=== PATIENT | female | born 1945 | race Caucasian/White ===

== ENCOUNTER 2017-10-19 05:07 | Inpatient (IN) | payer OTHER ==
[2017-10-13 11:37] VITALS: BMI 28.3
--- NOTE | 2017-10-19 10:28 | HP ---
Admitting History and Physical - Admission Chief Complaint: Laura Adhikari is a 72 year old Latin female who presents with c/o over one year lower back and Right leg radicular pain which have not responded to conversative measures. History of Present Illness: Laura Adhikari is a 72 year old Latin female who was referred by Dr. Holcomb with a history of back and leg pain which did not respond to conservative measures. She stated greater than one year of significant back and Right leg radicular pain. She described her pain as constant and with walking she can feel her bones rubbing. She described her pain as debilitating and affects her ADLs. She stated "When I walk, I feel like the bones are rubbing..constant in my Right leg...sitting is not too bad, but sometimes I have to lie down completely [ because the pain is too bad]...these last three months, I am in so much pain." History Source: Patient Limitations to Obtaining History: No Limitations - Past Medical History EMS EDUCATOR: No: Alzheimer's, CVA, Dementia, Migraine, Multiple Sclerosis, Peripheral Neuropathy, Parkinson's, Seizure, Syncope, TIA, Vertigo, Other ...: No Musculoskeletal: Yes: Chronic low back pain - Smoking History Smoking history: Never smoked Aproximately how many cigarettes per day: 0 - Alcohol/Substance Use Hx Alcohol Use: Yes (1 BEER OR WINE DAILY) - Social History ADL: Independent History of Recent Travel: No Home Medications - Allergies Allergies/Adverse Reactions: Allergies Allergy/AdvReac Type Severity Reaction Status Date / Time No Known Allergies Allergy Verified 10/13/17 11:44 - Home Medications Home Medications: Ambulatory Orders Atorvastatin Ca [Lipitor] 40 mg PO HS 10/13/17 Levothyroxine [Synthroid -] 75 mcg PO DAILY@0700 10/13/17 Zolpidem Tartrate [Ambien] 10 mg PO HS 10/13/17 Family Disease History - Family Disease History Family Disease History: CA: Father (esophageal)
[2017-10-19] MEDS ORDERED: LIDOCAINE 1%/EPI 1:100000 (20 ML MULTI DOSE VIAL) ONE (13:25)
[2017-10-19] MEDS ORDERED: GENTAMICIN SO4 80 MG/2 ML VIAL ONE (13:25)
[2017-10-19] MEDS ORDERED: BUPIVACAINE HCL/PF 0.5% (5MG/ML) 10 ML VIAL ONE (13:26)
[2017-10-19] MEDS ORDERED: THROMBIN (BOVINE) 5,000 UNIT VIAL TP ONE (13:26)
[2017-10-19] MEDS ORDERED: ROCURONIUM BROMIDE 50 MG/5 ML VIAL ONE ×2 (14:08→16:22)
[2017-10-19] MEDS ORDERED: MIDAZOLAM HCL 2 MG/2 ML SINGLE DOSE VIAL ONE (14:08)
[2017-10-19] MEDS ORDERED: PROPOFOL 20 ML ONE ×2 (14:08→18:15)
[2017-10-19] MEDS ORDERED: LIDOCAINE HCL/PF 2% SDV 5ML VIAL ONE (14:32)
[2017-10-19] MEDS ORDERED: SODIUM CHLORIDE 0.9% P/F 10 ML VIAL IJ ONE ×2 (14:39→15:18)
[2017-10-19] MEDS ORDERED: VANCOMYCIN 1,000 MG VIAL (RESTRICTED TO ID ONLY) ONE (14:39)
[2017-10-19] MEDS ORDERED: ceFAZolin SODIUM 1 GM VIAL ONE (14:39)
[2017-10-19] MEDS ORDERED: ceFAZolin SODIUM 1 GM VIAL IVPB ONE (14:40)
[2017-10-19] MEDS ORDERED: VANCOMYCIN 1,000 MG VIAL (RESTRICTED TO ID ONLY) IVPB ONE (14:41)
[2017-10-19] MEDS ORDERED: PHENYLEPHRINE HCL 10 MG/1 ML SINGLE DOSE VIAL ONE (15:17)
[2017-10-19] MEDS ORDERED: ePHEDrine SULFATE 50 MG/1 ML AMPULE ONE (15:18)
[2017-10-19] MEDS ORDERED: LIDOCAINE 1%/EPI 1:100000 (50 ML MULTI DOSE VIAL) INF ONE (15:29)
[2017-10-19] MEDS ORDERED: ONDANSETRON 4 MG/2 ML VIAL IVPUSH PRN ×2 (17:54→18:51)
[2017-10-19] MEDS ORDERED: oxyCODONE HCL 5 MG TABLET PO PRN ×2 (17:54→18:08)
[2017-10-19] MEDS ORDERED: MORPHINE SULFATE 10 MG/1 ML *VIAL IVPUSH PRN (17:54)
[2017-10-19] MEDS ORDERED: BUPIVACAINE HCL/PF 0.5% (5MG/ML) 10 ML VIAL IJ ONE (18:05)
[2017-10-19] MEDS ORDERED: PROMETHAZINE HCL 25 MG/1 ML VIAL IVPUSH PRN (18:51)
[2017-10-19] MEDS ORDERED: HYDROmorphone *PCA* 6MG/30ML DISP.SYRIN PCA ONE (18:57)
[2017-10-19] MEDS ORDERED: ELECTROLYTE-148 SOLN 1,000 ML IV SCH (19:00)
[2017-10-19] MEDS: HYDROmorphone *PCA* 10MG/50ML DISP.SYRIN PCA SCH (19:02)
[2017-10-19] MEDS: ELECTROLYTE-148 SOLN 1,000 ML IV SCH (21:56)
[2017-10-19] MEDS: ATORVASTATIN CA 40 MG TABLET (FP) PO SCH (22:06)
[2017-10-19] MEDS: DOCUSATE SODIUM 100 MG CAPSULE (FP) PO SCH (22:06)
[2017-10-19] MEDS: HEPARIN NA (PORCINE) 5,000 UNITS/ML 1ML VIAL SQ SCH (22:07)
[2017-10-19] MEDS ORDERED: CEFAZOLIN 1 GM PUSH 1 GM/10 ML DISP.SYRIN IVPUSH SCH (23:00)
[2017-10-20] MEDS: ELECTROLYTE-148 SOLN 1,000 ML IV SCH (00:02)
[2017-10-20] MEDS: CEFAZOLIN 1 GM PUSH 1 GM/10 ML DISP.SYRIN IVPUSH SCH ×3 (03:24→17:15)
[2017-10-20] MEDS: HEPARIN NA (PORCINE) 5,000 UNITS/ML 1ML VIAL SQ SCH ×3 (05:54→21:14)
[2017-10-20] MEDS: DOCUSATE SODIUM 100 MG CAPSULE (FP) PO SCH ×3 (05:54→21:14)
[2017-10-20] MEDS: LEVOTHYROXINE NA 75 MCG TABLET (FP) PO SCH (06:00)
[2017-10-20] MEDS: HYDROmorphone *PCA* 10MG/50ML DISP.SYRIN PCA SCH ×2 (07:59→18:20)
[2017-10-20 08:31] LABS: ANION GAP 6 (8-16); BLOOD UREA NITROGEN 15 mg/dL (7-18); CALCIUM 7.9 mg/dL (8.5-10.1); CHLORIDE 106 mmol/L (98-107); CO2 30 mmol/L (21-32); GLUCOSE,RANDOM 94 mg/dL (74-106); SODIUM 142 mmol/L (136-145)
[2017-10-20 08:33] LABS: CREATININE 0.6 mg/dL (0.55-1.02)
[2017-10-20 08:37] LABS: HEMATOCRIT 24.2 % (32.4-45.2); HEMOGLOBIN 7.9 GM/dL (10.7-15.3); MCH 28.6 pg (25.7-33.7); MCHC 32.6 g/dl (32.0-36.0); MEAN CELL VOLUME 87.6 fl (80-96); MEAN PLT VOLUME 9.5 fl (7.5-11.1); PLATELET COUNT 194 K/MM3 (134-434); RBC 2.77 M/mm3 (3.60-5.2)
--- NOTE | 2017-10-20 08:43 | PN ---
Progress Note (short form) - Note Progress Note: POD #1 Alert. Supine in bed c/o incsional tenderness. Hard time sleeping due to pain. 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 Hasn't been OOB yet. Using her incentive spirometer as directed. Rosales cath remains in place. Denies n/v/f/c, CP, SOB, HIDALGO. Last Vital Signs Temp Pulse Resp BP Pulse Ox 98.9 F 89 18 126/59 84 L 18 06:00 10/20/17 06:00 18 06:00 10/20/17 06:00 10/19/17 22:54 CBC, BMP 10/20/17 06:30 10/20/17 06:30 Blood Type Blood Type O POSITIVE 10/19/17 10:58 Gen: nad ABD: soft. nt. nd Back: dressing c/d/i. AILYN 190mL/24hr (serosang) Neuro: GMNVI. Problem List - Problems (1) S/P lumbar fusion Assessment/Plan: POD #1 s/p L2-L5 fusion/instrumentation/decompression Cont UTILITY DRIVER Incentive spirometer Ofirmev 1gm once Tylenol 650mg PO q4h TLSO brace to be worn when oob > 5mins (can ambulate without brace if it hasn't been delivered yet) PT Rosales to remain until she is ambulating IV ABX to continue while AILYN drains in Monitor H/H --> drop due to acute blood loss during surgery Above plan discussed with Dr. Rossi and agrees. Code(s): Z98.1 - ARTHRODESIS STATUS (2) Lumbar disc herniation with radiculopathy Code(s): M51.16 - INTERVERTEBRAL DISC DISORDERS W RADICULOPATHY, LUMBAR REGION
[2017-10-20] MEDS ORDERED: ACETAMINOPHEN 1000 MG/100 ML VIAL (NON FORMULARY) IVPB ONE (09:30)
--- NOTE | 2017-10-20 14:33 | PN ---
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
--- NOTE | 2017-10-20 14:50 | OP ---
Operative Note - Note: Operative Date: 10/19/17 Pre-Operative Diagnosis: lumbar degenerative disc disease with spondylolisthesis Operation: Lumbar laminectomies and fusion of L2-L5 Post-Operative Diagnosis: Same as Pre-op Surgeon: Karsten Rossi Warehouse Operator: Cara Feldman Anesthesiologist/MUSHROOM PICKER: Isaías Rodriguez Anesthesia: General Estimated Blood Loss (mls): 700 Fluid Volume Replaced (mls): 2,600 Operative Report Dictated: Yes
--- NOTE | 2017-10-20 14:51 | SURG ---
Surgery Process Lead Note Process Lead: Cara Feldman PA-C Date of Service: 10/19/17 Diagnosis: Lumbar DDD with Spondylolisthesis Procedure: Lumbar laminectomies and fusion with autograft of L2-L5 I was present for the entirety of the operative procedure. For further detail, please refer to operative report. Visit type - Case Type Case Type: Scheduled Admission - Emergency Emergency Visit: No
[2017-10-20] MEDS: ACETAMINOPHEN 325 MG TABLET (FP) PO PRN (15:22)
--- NOTE | 2017-10-20 15:59 | CONSULT ---
Consult - text type - Consultation Consultation Note: Laura Adhikari is a 72 year old Latin female who was referred from Ortho to Neurosurgery for persistent back pain not responding to medical management, provides hx of greater than one yr of back pain which has progressively deteriorated. She was evaluated by Neurosurgery and underwent surgical revision on 10/19/2017 . Patient with PMH of hypothyroid / HLD, currently treated and controlled on medication. Patient seen and examined no c/o CP / SOB/ Allergies NKDA Meds ---synthroid 75mcg atorvastatin 40mg zolpidem 10 mg PMH right shoulder surgery --schedule for revision hx knee surgery Vital Signs Period Temp Pulse Resp BP Sys/Orourke Pulse Ox Last 24 Hr 98.4 F-99.3 F 56-89 14-166 107-132/56-81 84-100 post op in pain laying in bed neck supple heart s1/S2 reg lungs clear bilat abd soft non-tender ext no edema / no calf tenderness / scd boots in place CBC, BMP 10/20/17 06:30 10/20/17 06:30 Active Medications Acetaminophen (Tylenol -) 650 mg PO Q4H PRN PRN Reason: FEVER Last Admin: 10/20/17 15:22 Dose: 650 mg Atorvastatin Calcium (Lipitor -) 40 mg PO HS JODIE Last Admin: 10/19/17 22:06 Dose: 40 mg Docusate Sodium (Colace -) 100 mg PO TID JODIE Last Admin: 10/20/17 14:37 Dose: 100 mg Gabapentin (Neurontin -) 300 mg PO BID JODIE Heparin Sodium (Porcine) (Heparin -) 5,000 unit SQ TID JODIE Last Admin: 10/20/17 14:37 Dose: 5,000 unit Hydromorphone HCl (Dilaudid Timber Management Specialist -) 10 mg ON AIR TALENT ON AIR TALENT JODIE PRN Reason: Protocol Stop: 10/26/17 18:51 Last Admin: 10/20/17 07:59 Dose: Not Given Cefazolin Sodium (Ancef -) 1 gm in 10 mls @ 120 mls/hr IVPUSH Q8H-IV JODIE Last Admin: 10/20/17 09:39 Dose: 120 mls/hr Levothyroxine Sodium (Synthroid -) 75 mcg PO DAILY@0700 [facility] Last Admin: 10/20/17 06:00 Dose: 75 mcg Ondansetron HCl (Zofran Injection) 4 mg IVPUSH Q6H PRN PRN Reason: NAUSEA Promethazine HCl (Phenergan Injection -) 12.5 mg IVPUSH Q6H PRN PRN Reason: NAUSEA-FOR RESCUE AFTER 15 MIN Zolpidem Tartrate (Ambien -) 5 mg PO HS PRN PRN Reason: INSOMNIA # POD #1 L2-L5 fusion / instrumentation / decompression 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 baseline anemia? will trend -- transfuse if needed Feosol / folate/ vit C / # hypothyroid continue synthroid TSH Appreciate consult and will follow patient with you Alka Hernandez Md
[2017-10-20] MEDS ORDERED: HYDROmorphone *PCA* 6MG/30ML DISP.SYRIN PCA ONE (17:11)
[2017-10-20] MEDS: ATORVASTATIN CA 40 MG TABLET (FP) PO SCH (21:14)
[2017-10-20] MEDS: GABAPENTIN 300 MG CAPSULE (FP) PO SCH (21:14)
[2017-10-20] MEDS: ZOLPIDEM TARTRATE 5 MG TABLET PO PRN (22:39)
[2017-10-21] MEDS: CEFAZOLIN 1 GM PUSH 1 GM/10 ML DISP.SYRIN IVPUSH SCH ×3 (01:24→17:26)
[2017-10-21] MEDS: LEVOTHYROXINE NA 75 MCG TABLET (FP) PO SCH (06:02)
[2017-10-21] MEDS: DOCUSATE SODIUM 100 MG CAPSULE (FP) PO SCH ×3 (06:02→21:09)
[2017-10-21] MEDS: HEPARIN NA (PORCINE) 5,000 UNITS/ML 1ML VIAL SQ SCH ×3 (06:03→21:09)
[2017-10-21] MEDS: ACETAMINOPHEN 325 MG TABLET (FP) PO PRN ×3 (06:18→21:10)
[2017-10-21 07:51] LABS: HEMATOCRIT 23.9 % (32.4-45.2); HEMOGLOBIN 7.7 GM/dL (10.7-15.3); MCH 28.2 pg (25.7-33.7); MCHC 32.4 g/dl (32.0-36.0); MEAN CELL VOLUME 87.2 fl (80-96); MEAN PLT VOLUME 9.2 fl (7.5-11.1); PLATELET COUNT 196 K/MM3 (134-434); RBC 2.74 M/mm3 (3.60-5.2); RDW 14.6 % (11.6-15.6); WHITE BLOOD COUNT 9.1 K/mm3 (4.0-10.0)
[2017-10-21 08:41] LABS: CALCIUM 7.8 mg/dL (8.5-10.1); CHLORIDE 104 mmol/L (98-107); POTASSIUM 3.6 mmol/L (3.5-5.1); SODIUM 139 mmol/L (136-145)
[2017-10-21 08:45] LABS: ANION GAP 8 (8-16); BLOOD UREA NITROGEN 7 mg/dL (7-18); CO2 27 mmol/L (21-32); CREATININE 0.6 mg/dL (0.55-1.02); GLUCOSE,RANDOM 118 mg/dL (74-106)
[2017-10-21] MEDS: GABAPENTIN 300 MG CAPSULE (FP) PO SCH ×2 (11:02→21:10)
[2017-10-21] MEDS ORDERED: oxyCODONE HCL 5 MG TABLET PO PRN (11:26)
[2017-10-21] MEDS: oxyCODONE HCL 5 MG TABLET PO PRN ×2 (11:31→17:25)
--- NOTE | 2017-10-21 12:55 | PN ---
Progress Note (short form) - Note Progress Note: Anesthesia SEO MANAGER follow up; POD#2 S/P L2-5 laminectomy and fusion. Pat seen and examined. VSS. Pain score 2-3/10. Tolerating po. A/p: d/C SEO MANAGER. Continue with po analgetic as per primary team.
--- NOTE | 2017-10-21 14:28 | PN ---
Progress Note (short form) - Note Progress Note: seen and examined in room has been ambulating in hallway per nursing staff reports chest heaviness and fatigue no dyspnea Vital Signs Period Temp Pulse Resp BP Sys/Orourke Pulse Ox Last 24 Hr 98.8 F-100.4 F 75-102 18-20 115-122/62-69 95-96 last night reports low grade fever / no chills neck supple heart S1/S2 2/6 CHAPIS lungs grossly clear abd soft non tender surgical site with AILYN drain in place serous-sanguineous drainage ext no edema / no calf tenderness CBC, BMP 10/21/17 06:45 10/21/17 06:45 Active Medications Acetaminophen (Tylenol -) 650 mg PO Q4H PRN PRN Reason: FEVER Last Admin: 10/21/17 06:18 Dose: 650 mg Atorvastatin Calcium (Lipitor -) 40 mg PO HS [facility] Last Admin: 10/20/17 21:14 Dose: 40 mg Docusate Sodium (Colace -) 100 mg PO TID [facility] Last Admin: 10/21/17 06:02 Dose: 100 mg Gabapentin (Neurontin -) 300 mg PO BID [facility] Last Admin: 10/21/17 11:02 Dose: 300 mg Heparin Sodium (Porcine) (Heparin -) 5,000 unit SQ TID [facility] Last Admin: 10/21/17 06:03 Dose: 5,000 unit Cefazolin Sodium (Ancef -) 1 gm in 10 mls @ 120 mls/hr IVPUSH Q8H-IV [facility] Last Admin: 10/21/17 11:03 Dose: 120 mls/hr Levothyroxine Sodium (Synthroid -) 75 mcg PO DAILY@0700 [facility] Last Admin: 10/21/17 06:02 Dose: 75 mcg Ondansetron HCl (Zofran Injection) 4 mg IVPUSH Q6H PRN PRN Reason: NAUSEA Oxycodone HCl (Roxicodone -) 5 mg PO Q4H PRN PRN Reason: PAIN LEVEL 1-5 Oxycodone HCl (Roxicodone -) 10 mg PO Q4H PRN PRN Reason: PAIN LEVEL 6-10 Last Admin: 10/21/17 11:31 Dose: 10 mg Promethazine HCl (Phenergan Injection -) 12.5 mg IVPUSH Q6H PRN PRN Reason: NAUSEA-FOR RESCUE AFTER 15 MIN Zolpidem Tartrate (Ambien -) 5 mg PO HS PRN PRN Reason: INSOMNIA Last Admin: 10/20/17 22:39 Dose: 5 mg # POD #2 L2-L5 fusion / instrumentation / decompression 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 baseline anemia? possible symptomatic anemia - yet able to ambulate without Sx will trend -- transfuse if needed ( discussed with patient possible need for transfusion) Feosol / folate/ vit C / # hypothyroid continue synthroid TSH
[2017-10-21] MEDS: POLYETHYLENE GLYCOL 3350 119 GM BTL PO SCH (15:34)
[2017-10-21] MEDS ORDERED: PT OWN MED DRAWER 7, Y5N ONE (17:22)
[2017-10-21] MEDS: FERROUS SO4/VIT C/FA 1 EACH TABLET.ER PO SCH (17:26)
[2017-10-21] MEDS: ALBUTEROL SO4 2.5/IPRATROPIUM 0.5 INH SOL 3 ML VIAL.NEB. NEB SCH (20:23)
[2017-10-21] MEDS: ATORVASTATIN CA 40 MG TABLET (FP) PO SCH (21:09)
[2017-10-21] MEDS: ZOLPIDEM TARTRATE 5 MG TABLET PO PRN (23:07)
--- NOTE | 2017-10-22 00:03 | PN ---
Progress Note (short form) - Note Progress Note: Patient is doing well on Postoperative day number 2 from L2-5 decompression and fusion. Hardware in good position (Right L2 screw slightly medial/Left L3 screw is lateral, otherwise all hardware in ideal position). Patient with expected pain and ambulating with brace. AILYN drainage diminshing. PLAN Physical Therapy Continue AILYN Follow exam Pain control Dr. Hernandez's input appreciated.
[2017-10-22] MEDS: oxyCODONE HCL 5 MG TABLET PO PRN ×4 (02:19→21:03)
[2017-10-22] MEDS: ACETAMINOPHEN 325 MG TABLET (FP) PO PRN ×3 (02:21→21:02)
[2017-10-22] MEDS: CEFAZOLIN 1 GM PUSH 1 GM/10 ML DISP.SYRIN IVPUSH SCH ×3 (02:22→18:53)
[2017-10-22] MEDS: HEPARIN NA (PORCINE) 5,000 UNITS/ML 1ML VIAL SQ SCH ×3 (06:00→21:01)
[2017-10-22] MEDS: DOCUSATE SODIUM 100 MG CAPSULE (FP) PO SCH ×3 (06:01→21:01)
[2017-10-22] MEDS: LEVOTHYROXINE NA 75 MCG TABLET (FP) PO SCH (06:57)
[2017-10-22 08:14] LABS: BASO % 0.6 % (0-2.0); EOS % 2.3 % (0-4.5); HEMATOCRIT 21.8 % (32.4-45.2); HEMOGLOBIN 7.2 GM/dL (10.7-15.3); LYMPH % 23.5 % (8-40); MCH 28.7 pg (25.7-33.7); MCHC 33.3 g/dl (32.0-36.0); MEAN CELL VOLUME 86.3 fl (80-96); MEAN PLT VOLUME 9.1 fl (7.5-11.1); MONO % 9.4 % (3.8-10.2); NEUT % 64.2 % (42.8-82.8); PLATELET COUNT 202 K/MM3 (134-434); RBC 2.52 M/mm3 (3.60-5.2); RDW 14.5 % (11.6-15.6); WHITE BLOOD COUNT 9.4 K/mm3 (4.0-10.0)
[2017-10-22 08:33] LABS: ALBUMIN 2.7 g/dl (3.4-5.0); ANION GAP 7 (8-16); BLOOD UREA NITROGEN 8 mg/dL (7-18); CALCIUM 7.6 mg/dL (8.5-10.1); CHLORIDE 105 mmol/L (98-107); CO2 27 mmol/L (21-32); CREATININE 0.7 mg/dL (0.55-1.02); GLUCOSE,RANDOM 100 mg/dL (74-106); MAGNESIUM 2.1 mg/dL (1.8-2.4); POTASSIUM 3.3 mmol/L (3.5-5.1); SODIUM 139 mmol/L (136-145)
[2017-10-22] MEDS: ALBUTEROL SO4 2.5/IPRATROPIUM 0.5 INH SOL 3 ML VIAL.NEB. NEB SCH ×3 (08:54→20:14)
[2017-10-22] MEDS ORDERED: PT OWN MED DRAWER 7, Y5N ONE (09:56)
[2017-10-22] MEDS: GABAPENTIN 300 MG CAPSULE (FP) PO SCH ×2 (09:58→21:01)
[2017-10-22] MEDS: POLYETHYLENE GLYCOL 3350 119 GM BTL PO SCH (09:59)
[2017-10-22] MEDS: FERROUS SO4/VIT C/FA 1 EACH TABLET.ER PO SCH (10:00)
[2017-10-22] MEDS: ATORVASTATIN CA 40 MG TABLET (FP) PO SCH (21:01)
[2017-10-22] MEDS ORDERED: FUROSEMIDE 40 MG/4 ML INJECTABLE VIAL IVPUSH ONE (23:11)
--- NOTE | 2017-10-22 23:23 | PN ---
Progress Note (short form) - Note Progress Note: seen and examined in room has been ambulating in hallway per nursing staff reports chest heaviness and fatigue + dyspnea Vital Signs Period Temp Pulse Resp BP Sys/Orourke Pulse Ox Last 24 Hr 98.3 F-99.7 F 69-87 20-20 91-114/50-66 96-96 last night reports low grade fever / no chills neck supple heart S1/S2 2/6 CHAPIS lungs grossly clear abd soft non tender surgical site with AILYN drain in place serous-sanguineous drainage ext no edema / no calf tenderness CBC, BMP 10/22/17 06:50 10/22/17 06:50 Active Medications Acetaminophen (Tylenol -) 650 mg PO Q4H PRN PRN Reason: FEVER Last Admin: 10/22/17 21:02 Dose: 650 mg Albuterol/Ipratropium (Duoneb -) 1 amp NEB RTID [facility] Last Admin: 10/22/17 20:14 Dose: 1 amp Atorvastatin Calcium (Lipitor -) 40 mg PO HS [facility] Last Admin: 10/22/17 21:01 Dose: 40 mg Docusate Sodium (Colace -) 100 mg PO TID [facility] Last Admin: 10/22/17 21:01 Dose: 100 mg Folic Acid/Iron (Folitab 500 Caplet -) 1 each PO DAILY [facility] Last Admin: 10/22/17 10:00 Dose: 1 each Furosemide (Lasix Injection -) 20 mg IVPUSH ONCE ONE Stop: 10/22/17 23:12 Gabapentin (Neurontin -) 300 mg PO BID [facility] Last Admin: 10/22/17 21:01 Dose: 300 mg Heparin Sodium (Porcine) (Heparin -) 5,000 unit SQ TID [facility] Last Admin: 10/22/17 21:01 Dose: 5,000 unit Cefazolin Sodium (Ancef -) 1 gm in 10 mls @ 120 mls/hr IVPUSH Q8H-IV [facility] Last Admin: 10/22/17 18:53 Dose: 120 mls/hr Levothyroxine Sodium (Synthroid -) 75 mcg PO DAILY@0700 [facility] Last Admin: 10/22/17 06:57 Dose: 75 mcg Ondansetron HCl (Zofran Injection) 4 mg IVPUSH Q6H PRN PRN Reason: NAUSEA Oxycodone HCl (Roxicodone -) 5 mg PO Q4H PRN PRN Reason: PAIN LEVEL 1-5 Last Admin: 10/21/17 21:09 Dose: 5 mg Oxycodone HCl (Roxicodone -) 10 mg PO Q4H PRN PRN Reason: PAIN LEVEL 6-10 Last Admin: 10/22/17 21:03 Dose: 10 mg Polyethylene Glycol (Miralax (For Daily Use) -) 17 gm PO DAILY JODIE Last Admin: 10/22/17 09:59 Dose: 17 gm Promethazine HCl (Phenergan Injection -) 12.5 mg IVPUSH Q6H PRN PRN Reason: NAUSEA-FOR RESCUE AFTER 15 MIN Zolpidem Tartrate (Ambien -) 10 mg PO HS PRN PRN Reason: INSOMNIA # POD #3 L2-L5 fusion / instrumentation / decompression 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 baseline anemia? symptomatic anemia - ambulates with Sx -- transfuse continue Feosol / folate/ vit C / # hypothyroid continue synthroid TSH
[2017-10-22] MEDS ORDERED: POTASSIUM CHLORIDE TABS 20 MEQ TABLET.ER (FP) PO ONE (23:25)
[2017-10-22] MEDS: ZOLPIDEM TARTRATE 5 MG TABLET PO PRN (23:36)
[2017-10-23] MEDS: CEFAZOLIN 1 GM PUSH 1 GM/10 ML DISP.SYRIN IVPUSH SCH (02:42)
[2017-10-23] MEDS: ACETAMINOPHEN 325 MG TABLET (FP) PO PRN ×3 (05:44→14:04)
[2017-10-23] MEDS: DOCUSATE SODIUM 100 MG CAPSULE (FP) PO SCH ×3 (05:45→21:03)
[2017-10-23] MEDS: HEPARIN NA (PORCINE) 5,000 UNITS/ML 1ML VIAL SQ SCH ×3 (05:45→21:03)
[2017-10-23] MEDS: oxyCODONE HCL 5 MG TABLET PO PRN ×5 (05:45→22:37)
[2017-10-23] MEDS: LEVOTHYROXINE NA 75 MCG TABLET (FP) PO SCH (06:41)
[2017-10-23 07:45] LABS: BASO % 0.7 % (0-2.0); EOS % 2.9 % (0-4.5); HEMATOCRIT 31.7 % (32.4-45.2); HEMOGLOBIN 10.8 GM/dL (10.7-15.3); LYMPH % 20.7 % (8-40); MCH 28.8 pg (25.7-33.7); MEAN CELL VOLUME 84.7 fl (80-96); MEAN PLT VOLUME 9.4 fl (7.5-11.1); MONO % 10.2 % (3.8-10.2); NEUT % 65.5 % (42.8-82.8); PLATELET COUNT 243 K/MM3 (134-434); RBC 3.75 M/mm3 (3.60-5.2); RDW 14.3 % (11.6-15.6); WHITE BLOOD COUNT 10.5 K/mm3 (4.0-10.0)
[2017-10-23] MEDS: ALBUTEROL SO4 2.5/IPRATROPIUM 0.5 INH SOL 3 ML VIAL.NEB. NEB SCH ×3 (07:58→20:30)
[2017-10-23 08:22] LABS: ANION GAP 7 (8-16); BLOOD UREA NITROGEN 8 mg/dL (7-18); CALCIUM 8.3 mg/dL (8.5-10.1); CHLORIDE 103 mmol/L (98-107); CO2 29 mmol/L (21-32); CREATININE 0.7 mg/dL (0.55-1.02); GLUCOSE,RANDOM 113 mg/dL (74-106); MAGNESIUM 2.2 mg/dL (1.8-2.4); POTASSIUM 3.8 mmol/L (3.5-5.1); SODIUM 139 mmol/L (136-145)
--- NOTE | 2017-10-23 08:43 | PN ---
Progress Note (short form) - Note Progress Note: Surgery POD#3 L2-5 decompression and fusion Patient seen and examined at bedside, c/o b/L LE radiculopathy R>L and pain at the incision site. Her drain was anciently removed last night and the site has been dressed with pressure dressing. She has been OOB and ambulating with a walker and assistance and voiding spontaneously but has not moved her bowels yet. She denies any CP, SOB, N/V Fever or chills. She received 2 units of PRBC yesterday and overall feels better today. Vital Signs Temp 99.7 F H 02//18 06:07 Pulse 94 H 0218 06:07 Resp 20 18 06:07 BP 116/70 10/23/17 06:07 Pulse Ox 96 18 21:00 Intake & Output 02/18 02/18 18 11:59 23:59 11:59 Intake Total 450 400 Output Total 40 690 Balance -40 -240 400 Intake: IVPB 100 50 Oral 350 Packed Cells 350 Output: Drainage 40 90 Back 40 90 Urine 600 Void 600 Other: Voiding Method Toilet Toilet Bowel Movement No CBC, BMP 02/12/18 06:10 02//18 06:10 PE: A&Ox3, NAD unlabored resp on RA Incision c/D/I with aquacell dressing in place and pressure dressing over drain site, no d/c of evidence of collection. Surrounding area flat and non-tender to palpation with no evidence of tracking erythema or edema. B/L LE compartments soft, supple and non-tender with +2 pedal pulses and 5/5 strength on dorsi/plantar flexion. Problem List - Problems (1) S/P lumbar fusion Assessment/Plan: POD #3 Multilevel decompression lumbar fusion with resolving post op anemia s/p transfusion with low grade fever this morning. Plan: 1) Abx stopped after j/p drain removed 2) OOB with TLSO brace, walker and assistance 3) continue DVT prophylaxis b/l teds/scds and sq heparin 4) d/c planning when medically appropriate, Patient requesting VNS 5) Follow up with Dr Rossi as scheduled Code(s): Z98.1 - ARTHRODESIS STATUS
[2017-10-23] MEDS ORDERED: PT OWN MED DRAWER 7, Y5N ONE (10:05)
[2017-10-23] MEDS: FERROUS SO4/VIT C/FA 1 EACH TABLET.ER PO SCH (10:07)
[2017-10-23] MEDS: POLYETHYLENE GLYCOL 3350 119 GM BTL PO SCH (10:07)
[2017-10-23] MEDS: GABAPENTIN 300 MG CAPSULE (FP) PO SCH ×2 (10:07→21:03)
--- NOTE | 2017-10-23 11:17 | PN ---
Progress Note (short form) - Note Progress Note: seen and examined in room c/o increased Pain to right leg / right hip in bed has been OOB to bathroom earlier but states cant get out of bed due to pain reports dyspnea resolved no further chest heaviness Vital Signs Period Temp Pulse Resp BP Sys/Orourke Pulse Ox Last 24 Hr 98.3 F-99.7 F 69-87 20-20 91-114/50-66 96-96 neck supple heart S1/S2 2/6 CHAPIS lungs grossly clear abd soft non tender surgical site with dessing in place - drain is out ext no edema / no calf tenderness CBC, BMP 10/23/17 06:10 10/23/17 06:10 s/p transfusion 2 units Active Medications Acetaminophen (Tylenol -) 650 mg PO Q4H PRN PRN Reason: FEVER Last Admin: 10/22/17 21:02 Dose: 650 mg Albuterol/Ipratropium (Duoneb -) 1 amp NEB RTID [facility] Last Admin: 10/22/17 20:14 Dose: 1 amp Atorvastatin Calcium (Lipitor -) 40 mg PO HS [facility] Last Admin: 10/22/17 21:01 Dose: 40 mg Docusate Sodium (Colace -) 100 mg PO TID [facility] Last Admin: 10/22/17 21:01 Dose: 100 mg Folic Acid/Iron (Folitab 500 Caplet -) 1 each PO DAILY [facility] Last Admin: 10/22/17 10:00 Dose: 1 each Furosemide (Lasix Injection -) 20 mg IVPUSH ONCE ONE Stop: 10/22/17 23:12 Gabapentin (Neurontin -) 300 mg PO BID [facility] Last Admin: 10/22/17 21:01 Dose: 300 mg Heparin Sodium (Porcine) (Heparin -) 5,000 unit SQ TID [facility] Last Admin: 10/22/17 21:01 Dose: 5,000 unit Cefazolin Sodium (Ancef -) 1 gm in 10 mls @ 120 mls/hr IVPUSH Q8H-IV [facility] Last Admin: 10/22/17 18:53 Dose: 120 mls/hr Levothyroxine Sodium (Synthroid -) 75 mcg PO DAILY@0700 [facility] Last Admin: 10/22/17 06:57 Dose: 75 mcg Ondansetron HCl (Zofran Injection) 4 mg IVPUSH Q6H PRN PRN Reason: NAUSEA Oxycodone HCl (Roxicodone -) 5 mg PO Q4H PRN PRN Reason: PAIN LEVEL 1-5 Last Admin: 10/21/17 21:09 Dose: 5 mg Oxycodone HCl (Roxicodone -) 10 mg PO Q4H PRN PRN Reason: PAIN LEVEL 6-10 Last Admin: 10/22/17 21:03 Dose: 10 mg Polyethylene Glycol (Miralax (For Daily Use) -) 17 gm PO DAILY JODIE Last Admin: 10/22/17 09:59 Dose: 17 gm Promethazine HCl (Phenergan Injection -) 12.5 mg IVPUSH Q6H PRN PRN Reason: NAUSEA-FOR RESCUE AFTER 15 MIN Zolpidem Tartrate (Ambien -) 10 mg PO HS PRN PRN Reason: INSOMNIA # POD #4 L2-L5 fusion / instrumentation / decompression 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 baseline anemia? symptomatic anemia - ambulates with Sx -- transfused 2 units h/h 07/10 continue Feosol / folate/ vit C / # hypothyroid continue synthroid TSH
--- NOTE | 2017-10-23 12:27 | PATH ---
Surgical Pathology Report Patient Name: JAMIL ALONSO Med. Rec. #: [id number] /Age/Gender: 1945 (Age: 72) / F Account: [id number] Location: [facility] MED/SURG Taken: 10/19/2017 Received: 10/20/2017 Reported: 10/23/2017 Physicians: Karsten Lees M.D. Specimen(s) Received JUXTA FACET CYST Clinical History Lumbar stenosis with lumbar degenerative scoliosis Final Diagnosis JUXTA FACET CYST, EXCISION: DENSE FIBROCONNECTIVE TISSUE AND SCANT FIBROADIPOSE TISSUE SUGGESTIVE OF CYST WALL. Electronically Signed Carri Issa M.D. Gross Description Received in formalin labeled "juxta facet cyst," is a 1.5 x 1.0 x 0.6 cm portion of osborn fibrocartilaginous tissue. The specimen is bisected and entirely submitted in one cassette.---- /10/20/2017 saudi10/20/2017
[2017-10-23] MEDS: ATORVASTATIN CA 40 MG TABLET (FP) PO SCH (21:03)
[2017-10-23] MEDS ORDERED: ACETAMINOPHEN 325 MG TABLET (FP) PO PRN (22:12)
[2017-10-23] MEDS ORDERED: MAGNESIUM CITRATE 300 ML BOTTLE PO ONE (22:15)
[2017-10-23] MEDS ORDERED: VANCOMYCIN 1,000 MG in DEXTROSE 5%-WATER - 250 ML IVPB ONE (22:25)
[2017-10-24] MEDS: ZOLPIDEM TARTRATE 5 MG TABLET PO PRN (00:34)
[2017-10-24] MEDS: CEFAZOLIN 1 GM PUSH 1 GM/10 ML DISP.SYRIN IVPUSH SCH ×2 (00:35→10:10)
[2017-10-24] MEDS: oxyCODONE HCL 5 MG TABLET PO PRN ×2 (05:43→13:21)
[2017-10-24] MEDS: ACETAMINOPHEN 325 MG TABLET (FP) PO PRN ×2 (05:44→14:50)
[2017-10-24] MEDS: DOCUSATE SODIUM 100 MG CAPSULE (FP) PO SCH ×2 (05:45→14:19)
[2017-10-24] MEDS: HEPARIN NA (PORCINE) 5,000 UNITS/ML 1ML VIAL SQ SCH (05:46)
[2017-10-24] MEDS: LEVOTHYROXINE NA 75 MCG TABLET (FP) PO SCH (06:46)
[2017-10-24] MEDS: ALBUTEROL SO4 2.5/IPRATROPIUM 0.5 INH SOL 3 ML VIAL.NEB. NEB SCH ×2 (07:35→13:40)
[2017-10-24 07:41] LABS: BASO % 0.8 % (0-2.0); EOS % 1.3 % (0-4.5); HEMATOCRIT 33.4 % (32.4-45.2); HEMOGLOBIN 11.1 GM/dL (10.7-15.3); LYMPH % 16.9 % (8-40); MCH 28.3 pg (25.7-33.7); MCHC 33.2 g/dl (32.0-36.0); MEAN CELL VOLUME 85.3 fl (80-96); MEAN PLT VOLUME 8.8 fl (7.5-11.1); MONO % 11.9 % (3.8-10.2); NEUT % 69.1 % (42.8-82.8); PLATELET COUNT 312 K/MM3 (134-434); RBC 3.91 M/mm3 (3.60-5.2); RDW 14.3 % (11.6-15.6)
[2017-10-24 08:01] LABS: ANION GAP 11 (8-16); BLOOD UREA NITROGEN 8 mg/dL (7-18); CALCIUM 8.8 mg/dL (8.5-10.1); CHLORIDE 101 mmol/L (98-107); CO2 25 mmol/L (21-32); CREATININE 0.6 mg/dL (0.55-1.02); GLUCOSE,RANDOM 125 mg/dL (74-106); POTASSIUM 3.7 mmol/L (3.5-5.1); SODIUM 137 mmol/L (136-145)
[2017-10-24] MEDS ORDERED: PT OWN MED DRAWER 7, Y5N ONE ×2 (09:57→16:35)
[2017-10-24] MEDS ORDERED: morphine SULFATE 4 MG/ML VIAL IVPUSH PRN (10:08)
[2017-10-24] MEDS: FERROUS SO4/VIT C/FA 1 EACH TABLET.ER PO SCH (10:10)
[2017-10-24] MEDS: GABAPENTIN 300 MG CAPSULE (FP) PO SCH (10:10)
[2017-10-24] MEDS: POLYETHYLENE GLYCOL 3350 119 GM BTL PO SCH (10:11)
--- NOTE | 2017-10-24 10:21 | PN ---
Progress Note (short form) - Note Progress Note: seen and examined in room called last night febrile 102.5 and again this am c/o increased Pain to right leg / right hip difficulty getting out of bed 2/2 to pain Vital Signs Period Temp Pulse Resp BP Sys/Orourke Pulse Ox Last 24 Hr 98.2 F-102.9 F 92-118 16-20 118-152/64-78 96 neck supple heart S1/S2 2/6 CHAPIS lungs grossly clear /crackles at left base abd soft non tender surgical site with dessing in place - drain is out ext no edema / no calf tenderness CBC, BMP 10/24/17 06:00 10/24/17 06:00 s/p transfusion 2 units blood cultures last night X 2 Tmax this am 101.6 Active Medications Acetaminophen (Tylenol -) 650 mg PO Q4H PRN PRN Reason: FEVER Last Admin: 10/24/17 05:44 Dose: 650 mg Acetaminophen (Tylenol -) 650 mg PO Q4H PRN PRN Reason: FEVER OVER 101.5 Last Admin: 10/23/17 22:34 Dose: 650 mg Albuterol/Ipratropium (Duoneb -) 1 amp NEB RTID [facility] Last Admin: 10/24/17 07:35 Dose: 1 amp Atorvastatin Calcium (Lipitor -) 40 mg PO HS [facility] Last Admin: 10/23/17 21:03 Dose: 40 mg Docusate Sodium (Colace -) 100 mg PO TID [facility] Last Admin: 10/24/17 05:45 Dose: 100 mg Folic Acid/Iron (Folitab 500 Caplet -) 1 each PO DAILY [facility] Last Admin: 10/24/17 10:10 Dose: 1 each Gabapentin (Neurontin -) 600 mg PO BID [facility] Last Admin: 10/24/17 10:10 Dose: 600 mg Heparin Sodium (Porcine) (Heparin -) 5,000 unit SQ TID [facility] Last Admin: 10/24/17 05:46 Dose: 5,000 unit Cefazolin Sodium (Ancef -) 1 gm in 10 mls @ 120 mls/hr IVPUSH Q8H-IV JODIE Stop: 10/30/17 22:59 Last Admin: 10/24/17 10:10 Dose: 120 mls/hr Levothyroxine Sodium (Synthroid -) 75 mcg PO DAILY@0700 [facility] Last Admin: 10/24/17 06:46 Dose: 75 mcg Morphine Sulfate (Morphine Injection -) 2 mg IVPUSH Q4H PRN PRN Reason: PAIN LEVEL 6-10 Ondansetron HCl (Zofran Injection) 4 mg IVPUSH Q6H PRN PRN Reason: NAUSEA Oxycodone HCl (Roxicodone -) 5 mg PO Q4H PRN PRN Reason: PAIN LEVEL 1-5 Last Admin: 10/21/17 21:09 Dose: 5 mg Oxycodone HCl (Roxicodone -) 10 mg PO Q4H PRN PRN Reason: PAIN LEVEL 6-10 Last Admin: 10/24/17 05:43 Dose: 10 mg Polyethylene Glycol (Miralax (For Daily Use) -) 17 gm PO DAILY [facility] Last Admin: 10/24/17 10:11 Dose: Not Given Promethazine HCl (Phenergan Injection -) 12.5 mg IVPUSH Q6H PRN PRN Reason: NAUSEA-FOR RESCUE AFTER 15 MIN Zolpidem Tartrate (Ambien -) 5 mg PO HS PRN PRN Reason: INSOMNIA Last Admin: 10/24/17 00:34 Dose: 5 mg # fever / 102.6 blood c/s X2 / CXR / urine c/s Vanco X1 / Ancef 1gmQ8 cover for Staph incentive spirometer nebulizer tx # POD #4 L2-L5 fusion / instrumentation / decompression increase pain to right leg ? re assessed by NS -hardware moved ?? NPO for OR today MS for pain # anemia -- transfused 2 units h/h 07/10 continue Feosol / folate/ vit C / # hypothyroid continue synthroid TSH
[2017-10-24 12:35] LABS: URINE APPEARANCE CLEAR; URINE BILIRUBIN NEGATIVE (NEGATIVE); URINE BLOOD NEGATIVE (NEGATIVE); URINE COLOR YELLOW; URINE GLUCOSE (UA) NEGATIVE (NEGATIVE); URINE KETONE NEGATIVE (NEGATIVE); URINE LEUK ESTERASE NEGATIVE (NEGATIVE); URINE NITRITE NEGATIVE (NEGATIVE); URINE UROBILINOGEN NEGATIVE mg/dL (0.2-1.0)
[2017-10-24 12:42] LABS: EPI CELLS RARE /HPF (FEW); URINE MUCUS RARE; URINE PROTEIN 1+ (NEGATIVE)
--- NOTE | 2017-10-24 14:15 | PN ---
Progress Note (short form) - Note Progress Note: ID Consult dictated POD # 4 L2L5 posterior fusion/ instrumentation/ decompression Post op fever/ leukocytosis ? LLL pneumonia Await sepsis workup obtain influenza swab Empiric zosyn/ vancomycin
--- NOTE | 2017-10-24 15:13 | CONS ---
INFECTIOUS DISEASE CONSULTATION DATE OF CONSULTATION: DATE OF DICTATION: 10/24/2017 REASON FOR CONSULTATION: The patient is a 72-year-old female evaluated for postoperative fever. HISTORY OF PRESENT ILLNESS: She has a history of chronic leg and back pain secondary to lumbar spinal stenosis and L1 compression fracture. She was admitted to the hospital on October 19, 2017, for an elective L2-L5 posterior fusion, instrumentation, and decompression. Her postoperative course was complicated by continued pain in her back and lower extremity. Over the past 24-48 hours, she has developed fever. Her temperature last evening was 102.9. She reports subjective fever. She denies any shaking chills. She complains of back and lower extremity pain. She denies any chest pain, shortness of breath, cough, sputum production. No complaints of dysuria or hematuria. No vomiting or diarrhea. Patient has been constipated. No calf tenderness. No reports of any catheter-related phlebitis. By reports, the surgical wound is healing well without evidence of infection. PAST MEDICAL HISTORY: Positive for chronic back and leg pain secondary to lumbar stenosis, L3-L4; L1 compression fracture; osteoarthritis; hyperlipidemia; hypothyroidism. ALLERGIES: No known allergies. MEDICATIONS: Include Tylenol, Lipitor, cefazolin, Colace, Neurontin, Synthroid, morphine, Ambien. SOCIAL HISTORY: She resides at home. Nonsmoker. Occasional EtOH. SYSTEMS REVIEW: Neurologic: As per HPI. Cardiac: Negative chest pain or palpitations. Respiratory: Negative cough or sputum production. Gastrointestinal: Negative vomiting or diarrhea. Genitourinary: Negative for urinary tract infection. LABORATORY DATA: White count 13.0, hematocrit 33.4, platelet count 312. BUN 8, creatinine 0.6. Urinalysis: White cells 4. Chest x-ray shows increased markings at the left base and blunting of the left costophrenic angle consistent with early infiltrate versus atelectasis. PHYSICAL EXAMINATION: General: The patient is awake and alert, in moderate distress secondary to back and leg pain. Vital Signs: Temperature 98.5, T-max 102.9; blood pressure 143/73; pulse 94, regular; respirations 20 per minute. HEENT: Sclerae anicteric. Heart: Sounds S1, S2. Lungs: Diminished breath sounds at the bases bilaterally. Abdomen: Soft. No tenderness elicited. No mass, rebound, or rigidity. Extremities: Negative for edema. Negative Homans sign. Skin: No evidence of catheter-related phlebitis. Surgical wound is covered with an Aquacel dressing. IMPRESSION: 1. Postoperative day number four L2-L5 posterior fusion, instrumentation, and decompression. 2. Postoperative fever and leukocytosis. 3. Possible hospital-acquired left lower lobe pneumonia. RECOMMENDATIONS: Await blood culture results. Obtain sputum culture, urine legionella and pneumococcal antigens. Influenza swab. Empiric antibiotic coverage for possible hospital-acquired pneumonia with Zosyn and vancomycin pending cultures. Will follow. Thank you for the kind referral. JEANNE PAZ M.D. [id number]
[2017-10-24] MEDS ORDERED: VANCOMYCIN 1,000 MG in DEXTROSE 5%-WATER - 250 ML IVPB SCH (16:00)
[2017-10-24] MEDS ORDERED: DEXTROSE 5%-0.45% SALINE 1,000 ML IV SCH (16:15)
[2017-10-24] MEDS: PIPERACILLIN/TAZOB 3.375 GM 3.375 GM in DEXTROSE 5%-WATER - 50 ML IVPB SCH ×2 (16:37→17:14)
[2017-10-24] MEDS ORDERED: THROMBIN (BOVINE) 5,000 UNIT VIAL TP ONE (18:03)
[2017-10-24] MEDS ORDERED: GENTAMICIN SO4 80 MG/2 ML VIAL ONE (18:03)
[2017-10-24] MEDS ORDERED: MIDAZOLAM HCL 2 MG/2 ML SINGLE DOSE VIAL ONE ×2 (18:10)
[2017-10-24] MEDS ORDERED: PROPOFOL 20 ML ONE (18:10)
[2017-10-24] MEDS ORDERED: ROCURONIUM BROMIDE 50 MG/5 ML VIAL ONE ×2 (18:10→19:36)
[2017-10-24] MEDS ORDERED: fentaNYL CITRATE 250 MCG/5 ML VIAL ONE (18:10)
[2017-10-24] MEDS ORDERED: VANCOMYCIN 1,000 MG VIAL (RESTRICTED TO ID ONLY) ONE (18:34)
[2017-10-24] MEDS ORDERED: VANCOMYCIN 1,000 MG VIAL (RESTRICTED TO ID ONLY) IVPB ONE (19:15)
[2017-10-24] MEDS ORDERED: ceFAZolin SODIUM 1 GM VIAL ONE (19:16)
[2017-10-24] MEDS ORDERED: ceFAZolin SODIUM 1 GM VIAL IVPB ONE (19:17)
[2017-10-24] MEDS ORDERED: ONDANSETRON 4 MG/2 ML VIAL ONE (19:30)
[2017-10-24] MEDS ORDERED: GENTAMICIN SO4 80 MG/2 ML VIAL IVPB ONE (19:49)
[2017-10-24] MEDS ORDERED: BACITRACIN 50,000 UNITS VIAL TP ONE (19:50)
[2017-10-24] MEDS ORDERED: NEOSTIGMINE METHYLSULFATE 0.5 MG/ML - 10 ML MDV ONE (20:37)
[2017-10-24] MEDS ORDERED: GLYCOPYRROLATE 0.2 MG/1 ML VIAL ONE (20:37)
[2017-10-24] MEDS ORDERED: IPRATROPIUM BR 0.02% 0.5 MG/2.5 ML VIAL.NEB. NEB ONE (20:41)
[2017-10-24] MEDS ORDERED: ALBUTEROL SO4 0.083% IH SOL 2.5 MG/3 ML VIAL.NEB. NEB ONE (20:41)
[2017-10-24] MEDS ORDERED: BUPIVACAINE HCL/PF 0.5% (5MG/ML) 10 ML VIAL IJ ONE (20:57)
[2017-10-24] MEDS: DEXTROSE 5%-0.45% SALINE 1,000 ML IV SCH (21:09)
[2017-10-24] MEDS ORDERED: HYDROmorphone HCL CARPU-JECT 4 MG/1 ML DISP.SYRIN ONE (21:24)
[2017-10-24] MEDS ORDERED: HYDROmorphone *PCA* 6MG/30ML DISP.SYRIN PCA ONE (21:25)
[2017-10-24] MEDS: HYDROmorphone HCL CARPU-JECT 4 MG/1 ML DISP.SYRIN IVPUSH PRN ×2 (21:30→21:40)
--- NOTE | 2017-10-24 21:34 | OP ---
Operative Note - Note: Operative Date: 10/24/17 Pre-Operative Diagnosis: lumbar degenerative disc disease Operation: wound exploration/washout, revision of Right L2 and left L3 screws Surgeon: Karsten Rossi Garland Machine Operator: Cara Andersen Anesthesiologist/COMMUNICATIONS PROFESSIONAL: Benigno Vallecillo Anesthesia: General Estimated Blood Loss (mls): 100 Drains, Volume Out (mls): 75 (granda) Fluid Volume Replaced (mls): 600
--- NOTE | 2017-10-24 21:37 | SURG ---
Surgery Organ Pipe Finisher Note Organ Pipe Finisher: Cara Andersen PA-C Date of Service: 10/24/17 Diagnosis: lumbar degenerative disc disease Procedure: wound exploration/washout, revision of Right L2 and left L3 screws I was present for the entirety of the operative procedure. For further detail, please refer to operative report. Visit type - Case Type Case Type: Scheduled Admission - Emergency Emergency Visit: No - New patient This patient is new to me today: Yes Date on this admission: 10/24/17
[2017-10-24] MEDS ORDERED: ONDANSETRON 4 MG/2 ML VIAL IVPUSH PRN (21:51)
[2017-10-25] MEDS: LACTATED RINGERS SOLUTION 1,000 ML IV SCH ×2 (00:40→22:43)
[2017-10-25] MEDS: ZOLPIDEM TARTRATE 5 MG TABLET PO PRN (00:51)
[2017-10-25] MEDS: GABAPENTIN 300 MG CAPSULE (FP) PO SCH ×3 (00:52→22:45)
[2017-10-25] MEDS: HEPARIN NA (PORCINE) 5,000 UNITS/ML 1ML VIAL SQ SCH ×4 (00:52→22:45)
[2017-10-25] MEDS: ATORVASTATIN CA 40 MG TABLET (FP) PO SCH ×2 (00:53→22:45)
[2017-10-25] MEDS: DOCUSATE SODIUM 100 MG CAPSULE (FP) PO SCH ×4 (00:53→22:44)
[2017-10-25] MEDS: PIPERACILLIN/TAZOB 3.375 GM 3.375 GM in DEXTROSE 5%-WATER - 50 ML IVPB SCH ×3 (03:15→18:20)
[2017-10-25] MEDS ORDERED: VANCOMYCIN 1,000 MG in DEXTROSE 5%-WATER - 250 ML IVPB SCH (04:00)
[2017-10-25] MEDS: VANCOMYCIN 1,000 MG in DEXTROSE 5%-WATER - 250 ML IVPB SCH ×2 (04:01→16:27)
[2017-10-25] MEDS: ACETAMINOPHEN 325 MG TABLET (FP) PO PRN ×3 (06:28→22:46)
[2017-10-25 07:33] LABS: BASO % 0.6 % (0-2.0); EOS % 1.2 % (0-4.5); HEMATOCRIT 32.3 % (32.4-45.2); HEMOGLOBIN 10.7 GM/dL (10.7-15.3); LYMPH % 14.3 % (8-40); MCH 28.7 pg (25.7-33.7); MCHC 33.2 g/dl (32.0-36.0); MEAN CELL VOLUME 86.6 fl (80-96); MEAN PLT VOLUME 8.6 fl (7.5-11.1); MONO % 12.7 % (3.8-10.2); NEUT % 71.2 % (42.8-82.8); PLATELET COUNT 347 K/MM3 (134-434); RBC 3.74 M/mm3 (3.60-5.2); RDW 14.2 % (11.6-15.6); WHITE BLOOD COUNT 11.7 K/mm3 (4.0-10.0)
[2017-10-25 07:49] LABS: CHLORIDE 98 mmol/L (98-107); POTASSIUM 4.3 mmol/L (3.5-5.1); SODIUM 135 mmol/L (136-145)
[2017-10-25] MEDS: ALBUTEROL SO4 2.5/IPRATROPIUM 0.5 INH SOL 3 ML VIAL.NEB. NEB SCH ×4 (07:50→20:49)
[2017-10-25] MEDS: HYDROmorphone *PCA* 10MG/50ML DISP.SYRIN PCA SCH ×2 (07:55→22:51)
[2017-10-25 08:46] LABS: BLOOD UREA NITROGEN 12 mg/dL (7-18); CALCIUM 8.6 mg/dL (8.5-10.1); CREATININE 0.9 mg/dL (0.55-1.02); GLUCOSE,RANDOM 127 mg/dL (74-106)
[2017-10-25] MEDS: LEVOTHYROXINE NA 75 MCG TABLET (FP) PO SCH (11:21)
[2017-10-25] MEDS: POLYETHYLENE GLYCOL 3350 119 GM BTL PO SCH (11:25)
[2017-10-25] MEDS: FERROUS SO4/VIT C/FA 1 EACH TABLET.ER PO SCH (11:26)
[2017-10-25 12:07] LABS: ANION GAP 16 (8-16); CO2 21 mmol/L (21-32)
--- NOTE | 2017-10-25 12:29 | PN ---
Progress Note, Physician History of Present Illness: Awake, alert Reports less back and leg pain No c/o chest pain/ dyspnea/ cough Low grade temp WBC improved - Current Medication List Current Medications: Active Medications Acetaminophen (Tylenol -) 650 mg PO Q4H PRN PRN Reason: FEVER Last Admin: 10/25/17 06:28 Dose: 650 mg Albuterol/Ipratropium (Duoneb -) 1 amp NEB RTID [facility] Last Admin: 10/25/17 07:50 Dose: 1 amp Atorvastatin Calcium (Lipitor -) 40 mg PO HS [facility] Last Admin: 10/25/17 00:53 Dose: 40 mg Docusate Sodium (Colace -) 100 mg PO TID [facility] Last Admin: 10/25/17 06:27 Dose: 100 mg Folic Acid/Iron (Folitab 500 Caplet -) 1 each PO DAILY [facility] Last Admin: 10/25/17 11:26 Dose: 1 each Gabapentin (Neurontin -) 600 mg PO BID [facility] Last Admin: 10/25/17 11:21 Dose: 600 mg Heparin Sodium (Porcine) (Heparin -) 5,000 unit SQ TID [facility] Last Admin: 10/25/17 06:27 Dose: 5,000 unit Hydromorphone HCl (Dilaudid Analytics Associate -) 10 mg WILLOW MACHINE TENDER WILLOW MACHINE TENDER [facility] PRN Reason: Protocol Stop: 10/27/17 21:20 Last Admin: 10/25/17 07:55 Dose: Not Given Lactated Ringer's (Lactated Ringers Solution) 1,000 mls @ 125 mls/hr IV ASDIR [facility] Last Admin: 10/25/17 00:40 Dose: Not Given Dextrose/Sodium Chloride (D5-1/2ns -) 1,000 mls @ 75 mls/hr IV ASDIR [facility] Last Admin: 10/24/17 21:09 Dose: 150 mls Piperacillin Sod/Tazobactam (Sod 3.375 gm/ Dextrose) 50 mls @ 100 mls/hr IVPB Q8H-IV [facility] PRN Reason: Protocol Last Admin: 10/25/17 11:16 Dose: 100 mls/hr Vancomycin HCl 1,000 mg/ (Dextrose) 250 mls @ 166.667 mls/hr IVPB BID@0400, 1600 [facility] Last Admin: 10/25/17 04:01 Dose: Not Given Levothyroxine Sodium (Synthroid -) 75 mcg PO DAILY@0700 [facility] Last Admin: 10/25/17 11:21 Dose: 75 mcg Ondansetron HCl (Zofran Injection) 4 mg IVPUSH Q6H PRN PRN Reason: NAUSEA Polyethylene Glycol (Miralax (For Daily Use) -) 17 gm PO DAILY [facility] Last Admin: 10/25/17 11:25 Dose: 17 grams Zolpidem Tartrate (Ambien -) 5 mg PO HS PRN PRN Reason: INSOMNIA Last Admin: 10/25/17 00:51 Dose: 5 mg - Objective Vital Signs: Vital Signs Temperature 100.7 F H 10/25/17 06:59 Pulse Rate 99 H 10/25/17 06:59 Respiratory Rate 20 10/25/17 06:59 Blood Pressure 105/74 10/25/17 06:59 O2 Sat by Pulse Oximetry (%) 98 10/25/17 00:00 Constitutional: Yes: No Distress Eyes: Yes: Conjunctiva Clear Cardiovascular: Yes: Regular Rate and Rhythm, S1, S2 Respiratory: Yes: Diminished Gastrointestinal: Yes: Normal Bowel Sounds, Soft. No: Tenderness Edema: No Labs: CBC, BMP 10/25/17 06:00 10/25/17 06:00 Assessment/Plan POD #1 laminectomy wound debridement/ washout/ revision of screws Possible [facility] hospital aquired pneumonia Fever/ leukocytosis- improved Await c/s Continue empiric zosyn/ vancomycin
--- NOTE | 2017-10-25 15:16 | PN ---
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
[2017-10-25] MEDS: DEXTROSE 5%-0.45% SALINE 1,000 ML IV SCH ×2 (18:23→22:43)
--- NOTE | 2017-10-25 20:12 | PN ---
Progress Note (short form) - Note Progress Note: seen and examined in room POD 1 on NAVAL ARCHITECT SPECIALIST nursing staff in attendance patietn sitting up in bed febrile this am Vital Signs Period Temp Pulse Resp BP Sys/Orourke Pulse Ox Last 24 Hr 98.2 F-103.1 F 77-112 14-22 104-180/42-100 98-100 neck supple heart S1/S2 2/6 CHAPIS lungs grossly clear /crackles at both base abd soft non tender surgical site with dessing in place ext no edema / no calf tenderness CBC, BMP 10/25/17 06:00 10/25/17 06:00 Microbiology 10/24/17 16:45 Sputum - Expectorated Gram Stain - Final 10/24/17 10:13 Urine - Urine Clean Catch Urine Culture - Final NO GROWTH OBTAINED 10/24/17 16:46 Nasopharyngeal Swab Influenza Types A,B Antigen (MILADIS) - Preliminary 10/24/17 16:46 Nasopharyngeal Swab - Preliminary 10/24/17 16:45 Urine For Antigen Detection Legionella Antigen - Final 10/24/17 16:45 Urine For Antigen Detection Streptococcus pneumoniae Antigen (M - Final 10/23/17 23:30 Blood - Peripheral Venous Blood Culture - Preliminary NO GROWTH OBTAINED AFTER 24 HOURS, INCUBATION TO CONTINUE FOR 4 DAYS. 10/23/17 23:00 Blood - Peripheral Venous Blood Culture - Preliminary NO GROWTH OBTAINED AFTER 24 HOURS, INCUBATION TO CONTINUE FOR 4 DAYS. Active Medications Acetaminophen (Tylenol -) 650 mg PO Q4H PRN PRN Reason: FEVER Last Admin: 10/25/17 14:57 Dose: 650 mg Albuterol/Ipratropium (Duoneb -) 1 amp NEB RTID [facility] Last Admin: 10/25/17 16:10 Dose: 1 amp Atorvastatin Calcium (Lipitor -) 40 mg PO HS [facility] Last Admin: 10/25/17 00:53 Dose: 40 mg Docusate Sodium (Colace -) 100 mg PO TID [facility] Last Admin: 10/25/17 15:01 Dose: 100 mg Folic Acid/Iron (Folitab 500 Caplet -) 1 each PO DAILY [facility] Last Admin: 10/25/17 11:26 Dose: 1 each Gabapentin (Neurontin -) 600 mg PO BID [facility] Last Admin: 10/25/17 11:21 Dose: 600 mg Heparin Sodium (Porcine) (Heparin -) 5,000 unit SQ TID [facility] Last Admin: 10/25/17 15:01 Dose: 5,000 unit Hydromorphone HCl (Dilaudid Chandelier Maker -) 10 mg NAVAL ARCHITECT SPECIALIST NAVAL ARCHITECT SPECIALIST [facility] PRN Reason: Protocol Stop: 10/27/17 21:20 Last Admin: 10/25/17 07:55 Dose: Not Given Lactated Ringer's (Lactated Ringers Solution) 1,000 mls @ 125 mls/hr IV ASDIR [facility] Last Admin: 10/25/17 00:40 Dose: Not Given Dextrose/Sodium Chloride (D5-1/2ns -) 1,000 mls @ 75 mls/hr IV ASDIR [facility] Last Admin: 10/25/17 18:23 Dose: 75 mls/hr Piperacillin Sod/Tazobactam (Sod 3.375 gm/ Dextrose) 50 mls @ 100 mls/hr IVPB Q8H-IV [facility] PRN Reason: Protocol Last Admin: 10/25/17 18:20 Dose: 100 mls/hr Vancomycin HCl 1,000 mg/ (Dextrose) 250 mls @ 166.667 mls/hr IVPB BID@0400, 1600 [facility] Last Admin: 10/25/17 16:27 Dose: 166.667 mls/hr Levothyroxine Sodium (Synthroid -) 75 mcg PO DAILY@0700 [facility] Last Admin: 10/25/17 11:21 Dose: 75 mcg Ondansetron HCl (Zofran Injection) 4 mg IVPUSH Q6H PRN PRN Reason: NAUSEA Polyethylene Glycol (Miralax (For Daily Use) -) 17 gm PO DAILY [facility] Last Admin: 10/25/17 11:25 Dose: 17 grams Zolpidem Tartrate (Ambien -) 5 mg PO HS PRN PRN Reason: INSOMNIA Last Admin: 10/25/17 00:51 Dose: 5 mg Assmt/ Plan # febrile [place] culture Abx per ID incentive spirometry / inc activity as tolerated # POD #1 revision / irrigation of L2-5fusion due to inc pain post op on NAVAL ARCHITECT SPECIALIST less pain / # POD #5 L2-L5 fusion / instrumentation / decompression increase pain to right leg suddenly on day #4 # anemia -- transfused 2 units h/h 07/10 continue Feosol / folate/ vit C / # hypothyroid continue synthroid TSH
[2017-10-26] MEDS: PIPERACILLIN/TAZOB 3.375 GM 3.375 GM in DEXTROSE 5%-WATER - 50 ML IVPB SCH ×3 (01:26→18:03)
[2017-10-26] MEDS: ZOLPIDEM TARTRATE 5 MG TABLET PO PRN ×2 (01:26→22:47)
[2017-10-26] MEDS ORDERED: HYDROmorphone *PCA* 6MG/30ML DISP.SYRIN PCA ONE (03:40)
[2017-10-26] MEDS: HYDROmorphone *PCA* 6MG/30ML DISP.SYRIN PCA SCH ×2 (03:43→05:43)
[2017-10-26] MEDS: VANCOMYCIN 1,000 MG in DEXTROSE 5%-WATER - 250 ML IVPB SCH (03:48)
[2017-10-26] MEDS: HEPARIN NA (PORCINE) 5,000 UNITS/ML 1ML VIAL SQ SCH ×3 (06:21→22:50)
[2017-10-26] MEDS: LEVOTHYROXINE NA 75 MCG TABLET (FP) PO SCH (06:22)
[2017-10-26] MEDS: DOCUSATE SODIUM 100 MG CAPSULE (FP) PO SCH ×3 (06:22→22:45)
[2017-10-26 07:36] LABS: BASO % 0.7 % (0-2.0); EOS % 2.2 % (0-4.5); HEMATOCRIT 32.3 % (32.4-45.2); HEMOGLOBIN 10.5 GM/dL (10.7-15.3); LYMPH % 15.2 % (8-40); MCH 28.4 pg (25.7-33.7); MCHC 32.6 g/dl (32.0-36.0); MEAN PLT VOLUME 8.2 fl (7.5-11.1); MONO % 11.8 % (3.8-10.2); NEUT % 70.1 % (42.8-82.8); PLATELET COUNT 405 K/MM3 (134-434); RBC 3.71 M/mm3 (3.60-5.2); RDW 14.1 % (11.6-15.6); WHITE BLOOD COUNT 14.5 K/mm3 (4.0-10.0)
[2017-10-26 08:04] LABS: ANION GAP 10 (8-16); BLOOD UREA NITROGEN 11 mg/dL (7-18); CALCIUM 7.6 mg/dL (8.5-10.1); CHLORIDE 100 mmol/L (98-107); CO2 26 mmol/L (21-32); GLUCOSE,RANDOM 105 mg/dL (74-106); POTASSIUM 3.7 mmol/L (3.5-5.1); SODIUM 136 mmol/L (136-145)
[2017-10-26] MEDS: ALBUTEROL SO4 2.5/IPRATROPIUM 0.5 INH SOL 3 ML VIAL.NEB. NEB SCH ×3 (08:58→21:35)
--- NOTE | 2017-10-26 09:32 | PN ---
Progress Note, Physician History of Present Illness: Awake, alert. Supine in bed. Reports less back pain. C/O R thigh pain. No c/o chest pain/ dyspnea/ cough Temp noted. WBC improved - Current Medication List Current Medications: Active Medications Acetaminophen (Tylenol -) 650 mg PO Q4H PRN PRN Reason: FEVER Last Admin: 10/25/17 22:46 Dose: 650 mg Albuterol/Ipratropium (Duoneb -) 1 amp NEB RTID [facility] Last Admin: 10/26/17 08:58 Dose: 1 amp Atorvastatin Calcium (Lipitor -) 40 mg PO HS [facility] Last Admin: 10/25/17 22:45 Dose: 40 mg Docusate Sodium (Colace -) 100 mg PO TID [facility] Last Admin: 10/26/17 06:22 Dose: 100 mg Folic Acid/Iron (Folitab 500 Caplet -) 1 each PO DAILY [facility] Last Admin: 10/25/17 11:26 Dose: 1 each Gabapentin (Neurontin -) 600 mg PO BID [facility] Last Admin: 10/25/17 22:45 Dose: 600 mg Heparin Sodium (Porcine) (Heparin -) 5,000 unit SQ TID [facility] Last Admin: 10/26/17 06:21 Dose: 5,000 unit Hydromorphone HCl (Dilaudid Utilities Service Investigator -) 6 mg STEAM CRANE OPERATOR STEAM CRANE OPERATOR [facility] PRN Reason: Protocol Last Admin: 10/26/17 05:43 Dose: Not Given Lactated Ringer's (Lactated Ringers Solution) 1,000 mls @ 125 mls/hr IV ASDIR [facility] Last Admin: 10/25/17 22:43 Dose: Not Given Dextrose/Sodium Chloride (D5-1/2ns -) 1,000 mls @ 75 mls/hr IV ASDIR [facility] Last Admin: 10/25/17 22:43 Dose: Not Given Piperacillin Sod/Tazobactam (Sod 3.375 gm/ Dextrose) 50 mls @ 100 mls/hr IVPB Q8H-IV [facility] PRN Reason: Protocol Last Admin: 10/26/17 01:26 Dose: 100 mls/hr Vancomycin HCl 1,000 mg/ (Dextrose) 250 mls @ 166.667 mls/hr IVPB BID@0400, 1600 [facility] Last Admin: 10/26/17 03:48 Dose: 166.667 mls/hr Levothyroxine Sodium (Synthroid -) 75 mcg PO DAILY@0700 [facility] Last Admin: 10/26/17 06:22 Dose: 75 mcg Ondansetron HCl (Zofran Injection) 4 mg IVPUSH Q6H PRN PRN Reason: NAUSEA Polyethylene Glycol (Miralax (For Daily Use) -) 17 gm PO DAILY [facility] Last Admin: 10/25/17 11:25 Dose: 17 grams Zolpidem Tartrate (Ambien -) 5 mg PO HS PRN PRN Reason: INSOMNIA Last Admin: 10/26/17 01:26 Dose: 5 mg - Objective Vital Signs: Vital Signs Temperature 98.3 F 10/26/17 06:00 Pulse Rate 92 H 10/26/17 06:00 Respiratory Rate 20 10/26/17 06:00 Blood Pressure 136/51 10/26/17 06:00 O2 Sat by Pulse Oximetry (%) 98 10/25/17 21:00 Constitutional: Yes: No Distress Eyes: Yes: Conjunctiva Clear Cardiovascular: Yes: Regular Rate and Rhythm, S1, S2 Respiratory: Yes: Diminished, Other (decreased BS bases) Gastrointestinal: Yes: Normal Bowel Sounds, Soft. No: Tenderness Extremities: No: Calf Tenderness Edema: No Integumentary: Yes: Other (post op dressing in place. Serosanguinous fluid in AILYN.) Labs: CBC, BMP 10/26/17 06:00 10/26/17 06:00 Assessment/Plan POD #2 laminectomy wound debridement/ washout/ revision of screws Possible [facility] aquired pneumonia Fever/ leukocytosis Continue empiric zosyn. D/C vancomycin OOB , ambulation
[2017-10-26] MEDS ORDERED: PT OWN MED DRAWER 7, Y5N ONE ×2 (10:53→17:58)
[2017-10-26] MEDS: GABAPENTIN 300 MG CAPSULE (FP) PO SCH ×2 (11:02→22:45)
[2017-10-26] MEDS: POLYETHYLENE GLYCOL 3350 119 GM BTL PO SCH (11:02)
[2017-10-26] MEDS: FERROUS SO4/VIT C/FA 1 EACH TABLET.ER PO SCH (11:03)
[2017-10-26] MEDS: DEXTROSE 5%-0.45% SALINE 1,000 ML IV SCH ×2 (13:57→22:45)
--- NOTE | 2017-10-26 15:31 | PROC ---
Procedure Note Procedure: Asked by Dr. Rossi to remove the AILYN drain. PT oob to chair with TLSO brace. AILYN-95ml serosangrenous Midline back dressing is c/d/i. AILYN removed intact and opening covered with gauze /tegaderm
--- NOTE | 2017-10-26 16:55 | PN ---
Progress Note (short form) - Note Progress Note: Pt found lying in bed. AILYN drain in place. Reports pain in rt LE. Vital Signs Period Temp Pulse Resp BP Sys/Orourke Pulse Ox Last 24 Hr 98.3 F-100 F 89-114 16-20 88-138/44-78 98 HEENT- NL Neck- supple Lungs- CTAB Heart- s1/s2 Abd- soft, nt Ext- No LE edema CBC, BMP 10/26/17 06:00 10/26/17 06:00 Active Medications Acetaminophen (Tylenol -) 650 mg PO Q4H PRN PRN Reason: FEVER Last Admin: 10/25/17 22:46 Dose: 650 mg Albuterol/Ipratropium (Duoneb -) 1 amp NEB RTID [facility] Last Admin: 10/26/17 14:00 Dose: 1 amp Atorvastatin Calcium (Lipitor -) 40 mg PO HS [facility] Last Admin: 10/25/17 22:45 Dose: 40 mg Docusate Sodium (Colace -) 100 mg PO TID [facility] Last Admin: 10/26/17 13:56 Dose: 100 mg Folic Acid/Iron (Folitab 500 Caplet -) 1 each PO DAILY [facility] Last Admin: 10/26/17 11:03 Dose: 1 each Gabapentin (Neurontin -) 600 mg PO BID [facility] Last Admin: 10/26/17 11:02 Dose: 600 mg Heparin Sodium (Porcine) (Heparin -) 5,000 unit SQ TID [facility] Last Admin: 10/26/17 13:56 Dose: 5,000 unit Hydromorphone HCl (Dilaudid Dry House Operator -) 6 mg MANAGER INFORMATION MANAGER INFORMATION [facility] PRN Reason: Protocol Last Admin: 10/26/17 05:43 Dose: Not Given Lactated Ringer's (Lactated Ringers Solution) 1,000 mls @ 125 mls/hr IV ASDIR [facility] Last Admin: 10/25/17 22:43 Dose: Not Given Dextrose/Sodium Chloride (D5-1/2ns -) 1,000 mls @ 75 mls/hr IV ASDIR [facility] Last Admin: 10/26/17 13:57 Dose: 75 mls/hr Piperacillin Sod/Tazobactam (Sod 3.375 gm/ Dextrose) 50 mls @ 100 mls/hr IVPB Q8H-IV [facility] PRN Reason: Protocol Last Admin: 10/26/17 11:03 Dose: 100 mls/hr Levothyroxine Sodium (Synthroid -) 75 mcg PO DAILY@0700 [facility] Last Admin: 10/26/17 06:22 Dose: 75 mcg Ondansetron HCl (Zofran Injection) 4 mg IVPUSH Q6H PRN PRN Reason: NAUSEA Polyethylene Glycol (Miralax (For Daily Use) -) 17 gm PO DAILY [facility] Last Admin: 10/26/17 11:02 Dose: 17 grams Zolpidem Tartrate (Ambien -) 5 mg PO HS PRN PRN Reason: INSOMNIA Last Admin: 10/26/17 01:26 Dose: 5 mg Assmt/ Plan # febrile Piperacillin/ Tazobactam per ID incentive spirometry # POD #1 revision / irrigation of L2-5 fusion due to inc pain post op on MANAGER INFORMATION Hydromorphone 6mg PRN Neurontin 600mg BID # POD #5 L2-L5 fusion / instrumentation / decompression increase pain to right leg # anemia -- h/h 10.5/32.3 continue Feosol / folate # hypothyroid continue synthroid 75 mcg daily
[2017-10-26] MEDS: ACETAMINOPHEN 325 MG TABLET (FP) PO PRN (18:03)
--- NOTE | 2017-10-26 18:04 | PN ---
Progress Note (short form) - Note Progress Note: POD #2 s/p - re-exploration of lumbar fusion under general anesthesia with TELEPHONE LINEWORKER for post-op pain management. Pt. sitting up comfortably in chair eating dinner. No complaints. Good pain control. Will continue current TELEPHONE LINEWORKER settings for now. Continue current care.
[2017-10-26] MEDS: ATORVASTATIN CA 40 MG TABLET (FP) PO SCH (22:45)
[2017-10-27] MEDS: LACTATED RINGERS SOLUTION 1,000 ML IV SCH (02:05)
[2017-10-27] MEDS: PIPERACILLIN/TAZOB 3.375 GM 3.375 GM in DEXTROSE 5%-WATER - 50 ML IVPB SCH ×3 (02:06→17:33)
[2017-10-27] MEDS: DEXTROSE 5%-0.45% SALINE 1,000 ML IV SCH (02:07)
[2017-10-27] MEDS: ACETAMINOPHEN 325 MG TABLET (FP) PO PRN ×3 (04:09→21:14)
[2017-10-27] MEDS: HYDROmorphone *PCA* 6MG/30ML DISP.SYRIN PCA SCH ×2 (04:09→07:06)
[2017-10-27] MEDS: HEPARIN NA (PORCINE) 5,000 UNITS/ML 1ML VIAL SQ SCH ×3 (06:09→21:16)
[2017-10-27] MEDS: LEVOTHYROXINE NA 75 MCG TABLET (FP) PO SCH (06:09)
[2017-10-27] MEDS: DOCUSATE SODIUM 100 MG CAPSULE (FP) PO SCH ×3 (06:09→21:12)
[2017-10-27] MEDS: ALBUTEROL SO4 2.5/IPRATROPIUM 0.5 INH SOL 3 ML VIAL.NEB. NEB SCH ×3 (07:40→21:10)
[2017-10-27 07:49] LABS: ANION GAP 8 (8-16); BLOOD UREA NITROGEN 10 mg/dL (7-18); CALCIUM 7.5 mg/dL (8.5-10.1); CHLORIDE 101 mmol/L (98-107); CO2 29 mmol/L (21-32); CREATININE 0.9 mg/dL (0.55-1.02); GLUCOSE,RANDOM 106 mg/dL (74-106); POTASSIUM 3.6 mmol/L (3.5-5.1); SODIUM 138 mmol/L (136-145)
[2017-10-27 08:03] LABS: BASO % 0.7 % (0-2.0); EOS % 4.3 % (0-4.5); HEMATOCRIT 28.3 % (32.4-45.2); HEMOGLOBIN 9.2 GM/dL (10.7-15.3); LYMPH % 15.5 % (8-40); MCH 28.4 pg (25.7-33.7); MCHC 32.6 g/dl (32.0-36.0); MEAN CELL VOLUME 86.9 fl (80-96); MEAN PLT VOLUME 8.3 fl (7.5-11.1); MONO % 9.9 % (3.8-10.2); NEUT % 69.6 % (42.8-82.8); PLATELET COUNT 460 K/MM3 (134-434); RBC 3.26 M/mm3 (3.60-5.2); RDW 13.8 % (11.6-15.6); WHITE BLOOD COUNT 11.8 K/mm3 (4.0-10.0)
--- NOTE | 2017-10-27 10:01 | PN ---
Progress Note (short form) - Note Progress Note: Patient is a 72 year old female who is post-op day #3 s/p wound exploration/ washout and revision of Right L2 and Left L3 screws. She reports doing well this morning; no fever; chills; cough or cold; has been getting out of bed with physical therapy and walking. She reports some heaviness in the lower extremities but reports felling better than yesterday. Pain control. Still on IV PROPOSAL ANALYST. No acute distress. Will continue to follow from neurosurgery.
[2017-10-27] MEDS ORDERED: PT OWN MED DRAWER 7, Y5N ONE ×3 (10:27→17:30)
[2017-10-27] MEDS: GABAPENTIN 300 MG CAPSULE (FP) PO SCH ×2 (10:28→21:35)
[2017-10-27] MEDS: POLYETHYLENE GLYCOL 3350 119 GM BTL PO SCH (10:32)
[2017-10-27] MEDS: FERROUS SO4/VIT C/FA 1 EACH TABLET.ER PO SCH (10:32)
--- NOTE | 2017-10-27 11:06 | PN ---
Progress Note (short form) - Note Progress Note: seen and examined in room POD 3 on CHICKEN CATCHER patietn sitting up in bed low grade fever overnight Vital Signs Period Temp Pulse Resp BP Sys/Orourke Pulse Ox Last 24 Hr 98.6 F-100.4 F 82-91 16-20 94-147/53-54 95 neck supple heart S1/S2 2/6 CHAPIS lungs clear bilat abd soft non tender surgical site with dessing in place ext no edema / no calf tenderness CBC, BMP 10/27/17 06:00 10/27/17 06:00 Microbiology 10/24/17 16:45 Sputum - Expectorated Gram Stain - Final 10/24/17 16:45 Sputum - Expectorated Sputum Culture - Final NORMAL RESPIRATORY CLINT 10/23/17 23:30 Blood - Peripheral Venous Blood Culture - Preliminary NO GROWTH OBTAINED AFTER 72 HOURS, INCUBATION TO CONTINUE FOR 2 DAYS. 10/23/17 23:00 Blood - Peripheral Venous Blood Culture - Preliminary NO GROWTH OBTAINED AFTER 72 HOURS, INCUBATION TO CONTINUE FOR 2 DAYS. 10/24/17 10:13 Urine - Urine Clean Catch Urine Culture - Final NO GROWTH OBTAINED 10/24/17 16:46 Nasopharyngeal Swab Influenza Types A,B Antigen (MILADIS) - Preliminary 10/24/17 16:46 Nasopharyngeal Swab - Preliminary 10/24/17 16:45 Urine For Antigen Detection Legionella Antigen - Final 10/24/17 16:45 Urine For Antigen Detection Streptococcus pneumoniae Antigen (M - Final A Active Medications Acetaminophen (Tylenol -) 650 mg PO Q4H PRN PRN Reason: FEVER Last Admin: 10/27/17 04:09 Dose: 650 mg Albuterol/Ipratropium (Duoneb -) 1 amp NEB RTID [facility] Last Admin: 10/27/17 07:40 Dose: 1 amp Atorvastatin Calcium (Lipitor -) 40 mg PO HS [facility] Last Admin: 10/26/17 22:45 Dose: 40 mg Docusate Sodium (Colace -) 100 mg PO TID [facility] Last Admin: 10/27/17 06:09 Dose: 100 mg Folic Acid/Iron (Folitab 500 Caplet -) 1 each PO DAILY [facility] Last Admin: 10/27/17 10:32 Dose: 1 each Gabapentin (Neurontin -) 600 mg PO BID [facility] Last Admin: 10/27/17 10:28 Dose: 600 mg Heparin Sodium (Porcine) (Heparin -) 5,000 unit SQ TID [facility] Last Admin: 10/27/17 06:09 Dose: 5,000 unit Hydromorphone HCl (Dilaudid Evaporator Operator Molasses -) 6 mg CHICKEN CATCHER CHICKEN CATCHER [facility] PRN Reason: Protocol Last Admin: 10/27/17 07:06 Dose: 6 mg Lactated Ringer's (Lactated Ringers Solution) 1,000 mls @ 125 mls/hr IV ASDIR [facility] Last Admin: 10/27/17 02:05 Dose: Not Given Dextrose/Sodium Chloride (D5-1/2ns -) 1,000 mls @ 75 mls/hr IV ASDIR [facility] Last Admin: 10/27/17 02:07 Dose: 75 mls/hr Piperacillin Sod/Tazobactam (Sod 3.375 gm/ Dextrose) 50 mls @ 100 mls/hr IVPB Q8H-IV [facility] PRN Reason: Protocol Last Admin: 10/27/17 10:32 Dose: 100 mls/hr Levothyroxine Sodium (Synthroid -) 75 mcg PO DAILY@0700 [facility] Last Admin: 10/27/17 06:09 Dose: 75 mcg Ondansetron HCl (Zofran Injection) 4 mg IVPUSH Q6H PRN PRN Reason: NAUSEA Polyethylene Glycol (Miralax (For Daily Use) -) 17 gm PO DAILY [facility] Last Admin: 10/27/17 10:32 Dose: Not Given Zolpidem Tartrate (Ambien -) 10 mg PO HS PRN PRN Reason: INSOMNIA Assmt/ Plan # febrile continues low grade fever [place] culture -- follow c/s eperic abx coverage Abx per ID incentive spirometry / inc activity as tolerated # POD #3 revision / irrigation of L2-5fusion due to inc pain post op on CHICKEN CATCHER less pain / needs to inc activity -discussed with patient # s/p L2-L5 fusion / instrumentation / decompression increase pain to right leg suddenly on day #4 returned to OR for revision # anemia -- transfused 2 units h/h 10/30 continue Feosol / folate/ vit C / # hypothyroid continue synthroid TSH
[2017-10-27] MEDS ORDERED: oxyCODONE HCL 5 MG TABLET PO PRN (15:15)
--- NOTE | 2017-10-27 15:21 | PN ---
Progress Note (short form) - Note Progress Note: Anesthesia/Pain Pt seen and examined S:Alert and awake O: Vital Signs Temperature 100.3 F H 10/27/17 15:12 Pulse Rate 118 H 10/27/17 15:12 Respiratory Rate 20 10/27/17 15:12 Blood Pressure 139/86 10/27/17 15:12 O2 Sat by Pulse Oximetry (%) 96 10/27/17 09:00 CBC, BMP 10/27/17 06:00 10/27/17 06:00 A/P:s/p re exploration of lumbar fusion Doing well post op Continue PRODUCT MARKETING DIRECTOR Ernie Ewing MD
--- NOTE | 2017-10-27 15:45 | PROC ---
Procedure Note Procedure: Dressing changed today. Incision c/d/i with bipin/dermabond. No erythema or drainage noted. Applied new aquacel and 4x4 gauze dressing/tegaderm over site where(jacklyn removed yesterday)
[2017-10-27] MEDS: oxyCODONE HCL 5 MG TABLET PO PRN (21:13)
[2017-10-27] MEDS: ATORVASTATIN CA 40 MG TABLET (FP) PO SCH (21:16)
[2017-10-27] MEDS: ZOLPIDEM TARTRATE 5 MG TABLET PO PRN (22:51)
[2017-10-28] MEDS: PIPERACILLIN/TAZOB 3.375 GM 3.375 GM in DEXTROSE 5%-WATER - 50 ML IVPB SCH ×3 (01:15→18:24)
[2017-10-28] MEDS: oxyCODONE HCL 5 MG TABLET PO PRN ×5 (03:38→23:06)
[2017-10-28] MEDS: ACETAMINOPHEN 325 MG TABLET (FP) PO PRN ×3 (03:39→20:28)
[2017-10-28] MEDS: HEPARIN NA (PORCINE) 5,000 UNITS/ML 1ML VIAL SQ SCH ×3 (05:52→22:09)
[2017-10-28] MEDS: DOCUSATE SODIUM 100 MG CAPSULE (FP) PO SCH ×4 (05:56→22:14)
[2017-10-28] MEDS: LEVOTHYROXINE NA 75 MCG TABLET (FP) PO SCH (06:06)
[2017-10-28] MEDS: ALBUTEROL SO4 2.5/IPRATROPIUM 0.5 INH SOL 3 ML VIAL.NEB. NEB SCH ×3 (07:33→21:10)
[2017-10-28 08:31] LABS: BASO % 0.8 % (0-2.0); EOS % 2.7 % (0-4.5); HEMATOCRIT 28.1 % (32.4-45.2); HEMOGLOBIN 9.2 GM/dL (10.7-15.3); LYMPH % 18.1 % (8-40); MCH 28.3 pg (25.7-33.7); MCHC 32.6 g/dl (32.0-36.0); MEAN CELL VOLUME 86.7 fl (80-96); MEAN PLT VOLUME 7.8 fl (7.5-11.1); MONO % 9.3 % (3.8-10.2); NEUT % 69.1 % (42.8-82.8); PLATELET COUNT 547 K/MM3 (134-434); RBC 3.24 M/mm3 (3.60-5.2); RDW 14.1 % (11.6-15.6); WHITE BLOOD COUNT 9.7 K/mm3 (4.0-10.0)
[2017-10-28] MEDS ORDERED: PT OWN MED DRAWER 7, Y5N ONE (11:31)
[2017-10-28] MEDS: GABAPENTIN 300 MG CAPSULE (FP) PO SCH ×2 (11:34→22:09)
[2017-10-28] MEDS: FERROUS SO4/VIT C/FA 1 EACH TABLET.ER PO SCH (11:35)
[2017-10-28] MEDS: POLYETHYLENE GLYCOL 3350 119 GM BTL PO SCH (11:35)
--- NOTE | 2017-10-28 11:39 | PN ---
Progress Note, Physician History of Present Illness: Awake, alert. Supine in bed. Reports less back pain. No c/o chest pain/ dyspnea/ cough No dysuria Low grade temp WBC improved Influenza screen negative BC (-) - Current Medication List Current Medications: Active Medications Acetaminophen (Tylenol -) 650 mg PO Q4H PRN PRN Reason: FEVER Last Admin: 10/28/17 03:39 Dose: 650 mg Albuterol/Ipratropium (Duoneb -) 1 amp NEB RTID [facility] Last Admin: 10/28/17 07:33 Dose: 1 amp Atorvastatin Calcium (Lipitor -) 40 mg PO HS [facility] Last Admin: 10/27/17 21:16 Dose: 40 mg Docusate Sodium (Colace -) 100 mg PO TID [facility] Last Admin: 10/28/17 05:56 Dose: Not Given Folic Acid/Iron (Folitab 500 Caplet -) 1 each PO DAILY [facility] Last Admin: 10/28/17 11:35 Dose: 1 each Gabapentin (Neurontin -) 600 mg PO BID [facility] Last Admin: 10/28/17 11:34 Dose: 600 mg Heparin Sodium (Porcine) (Heparin -) 5,000 unit SQ TID [facility] Last Admin: 10/28/17 05:52 Dose: 5,000 unit Piperacillin Sod/Tazobactam (Sod 3.375 gm/ Dextrose) 50 mls @ 100 mls/hr IVPB Q8H-IV JODIE PRN Reason: Protocol Last Admin: 10/28/17 11:34 Dose: 100 mls/hr Levothyroxine Sodium (Synthroid -) 75 mcg PO DAILY@0700 [facility] Last Admin: 10/28/17 06:06 Dose: 75 mcg Ondansetron HCl (Zofran Injection) 4 mg IVPUSH Q6H PRN PRN Reason: NAUSEA Oxycodone HCl (Roxicodone -) 5 mg PO Q4H PRN PRN Reason: PAIN LEVEL 1-5 Oxycodone HCl (Roxicodone -) 10 mg PO Q4H PRN PRN Reason: PAIN LEVEL 6-10 Last Admin: 10/28/17 08:18 Dose: 10 mg Polyethylene Glycol (Miralax (For Daily Use) -) 17 gm PO DAILY [facility] Last Admin: 10/28/17 11:35 Dose: Not Given Zolpidem Tartrate (Ambien -) 5 mg PO HS PRN PRN Reason: INSOMNIA Last Admin: 10/27/17 22:51 Dose: 5 mg - Objective Vital Signs: Vital Signs Temperature 98.7 F 10/28/17 06:52 Pulse Rate 83 10/28/17 06:52 Respiratory Rate 18 10/28/17 06:52 Blood Pressure 102/59 10/28/17 06:52 O2 Sat by Pulse Oximetry (%) 96 10/27/17 21:00 Constitutional: Yes: No Distress Eyes: Yes: Conjunctiva Clear Cardiovascular: Yes: Regular Rate and Rhythm, S1, S2 Respiratory: Yes: CTA Bilaterally Gastrointestinal: Yes: Normal Bowel Sounds, Soft. No: Tenderness Extremities: No: Calf Tenderness Integumentary: Yes: Other (surgical dressing in place) Labs: CBC, BMP 10/28/17 07:00 10/27/17 06:00 Assessment/Plan Post op laminectomy wound debridement/ washout/ revision of screws Possible [facility] hospital aquired pneumonia Fever/ leukocytosis - improved Continue empiric zosyn. D/C vancomycin OOB , ambulation
--- NOTE | 2017-10-28 12:12 | PN ---
Progress Note (short form) - Note Progress Note: seen and examined in room sitting in chair ambulating in hallway low grade temp this am c/s neg / influenza neg Vital Signs Period Temp Pulse Resp BP Sys/Orourke Pulse Ox Last 24 Hr 98.7 F-100.3 F 83-118 18-20 102-139/57-86 96 sitting in chair wearing back brace neck supple heart S1/S2 2/6 CHAPIS lungs clear bilat abd soft non tender surgical site with dessing in place ext no edema / no calf tenderness CBC, BMP 10/28/17 07:00 10/27/17 06:00 Microbiology 10/23/17 23:30 Blood - Peripheral Venous Blood Culture - Preliminary NO GROWTH OBTAINED AFTER 96 HOURS, INCUBATION TO CONTINUE FOR 1 DAYS. 10/23/17 23:00 Blood - Peripheral Venous Blood Culture - Preliminary NO GROWTH OBTAINED AFTER 96 HOURS, INCUBATION TO CONTINUE FOR 1 DAYS. 10/24/17 16:46 Nasopharyngeal Swab Influenza Types A,B Antigen (MILADIS) - Final 10/24/17 16:46 Nasopharyngeal Swab - Final 10/24/17 16:45 Sputum - Expectorated Gram Stain - Final 10/24/17 16:45 Sputum - Expectorated Sputum Culture - Final NORMAL RESPIRATORY [place] 10/24/17 10:13 Urine - Urine Clean Catch Urine Culture - Final NO GROWTH OBTAINED 10/24/17 16:45 Urine For Antigen Detection Legionella Antigen - Final 10/24/17 16:45 Urine For Antigen Detection Streptococcus pneumoniae Antigen (M - Final A Active Medications Acetaminophen (Tylenol -) 650 mg PO Q4H PRN PRN Reason: FEVER Last Admin: 10/28/17 03:39 Dose: 650 mg Albuterol/Ipratropium (Duoneb -) 1 amp NEB RTID [facility] Last Admin: 10/28/17 07:33 Dose: 1 amp Atorvastatin Calcium (Lipitor -) 40 mg PO HS [facility] Last Admin: 10/27/17 21:16 Dose: 40 mg Docusate Sodium (Colace -) 100 mg PO TID [facility] Last Admin: 10/28/17 05:56 Dose: Not Given Folic Acid/Iron (Folitab 500 Caplet -) 1 each PO DAILY [facility] Last Admin: 10/28/17 11:35 Dose: 1 each Gabapentin (Neurontin -) 600 mg PO BID [facility] Last Admin: 10/28/17 11:34 Dose: 600 mg Heparin Sodium (Porcine) (Heparin -) 5,000 unit SQ TID [facility] Last Admin: 10/28/17 05:52 Dose: 5,000 unit Piperacillin Sod/Tazobactam (Sod 3.375 gm/ Dextrose) 50 mls @ 100 mls/hr IVPB Q8H-IV JODIE PRN Reason: Protocol Last Admin: 10/28/17 11:34 Dose: 100 mls/hr Levothyroxine Sodium (Synthroid -) 75 mcg PO DAILY@0700 [facility] Last Admin: 10/28/17 06:06 Dose: 75 mcg Ondansetron HCl (Zofran Injection) 4 mg IVPUSH Q6H PRN PRN Reason: NAUSEA Oxycodone HCl (Roxicodone -) 5 mg PO Q4H PRN PRN Reason: PAIN LEVEL 1-5 Oxycodone HCl (Roxicodone -) 10 mg PO Q4H PRN PRN Reason: PAIN LEVEL 6-10 Last Admin: 10/28/17 08:18 Dose: 10 mg Polyethylene Glycol (Miralax (For Daily Use) -) 17 gm PO DAILY [facility] Last Admin: 10/28/17 11:35 Dose: Not Given Zolpidem Tartrate (Ambien -) 5 mg PO HS PRN PRN Reason: INSOMNIA Last Admin: 10/27/17 22:51 Dose: 5 mg Assmt/ Plan # febrile continues low grade fever [place] culture -- all neg emperic abx coverage Abx per ID incentive spirometry / inc activity as tolerated # POD #3 revision / irrigation of L2-5fusion due to inc pain 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
--- NOTE | 2017-10-28 12:59 | PN ---
Progress Note (short form) - Note Progress Note: Patient stable and c/o pain score of 3-4/10 for which she is on medication.Information Systems Coordinator is dc and patient doing fine on rest of the pain medications.No any anesthesia related problem.Patient DC from the anesthesia care.
[2017-10-28] MEDS: ATORVASTATIN CA 40 MG TABLET (FP) PO SCH (22:08)
[2017-10-28] MEDS: ZOLPIDEM TARTRATE 5 MG TABLET PO PRN (23:07)
[2017-10-29] MEDS: PIPERACILLIN/TAZOB 3.375 GM 3.375 GM in DEXTROSE 5%-WATER - 50 ML IVPB SCH ×2 (01:26→09:49)
[2017-10-29] MEDS: oxyCODONE HCL 5 MG TABLET PO PRN ×5 (04:39→23:08)
[2017-10-29] MEDS: ACETAMINOPHEN 325 MG TABLET (FP) PO PRN (04:40)
[2017-10-29] MEDS: HEPARIN NA (PORCINE) 5,000 UNITS/ML 1ML VIAL SQ SCH ×3 (05:37→21:58)
[2017-10-29] MEDS: DOCUSATE SODIUM 100 MG CAPSULE (FP) PO SCH ×3 (05:37→21:58)
[2017-10-29] MEDS: LEVOTHYROXINE NA 75 MCG TABLET (FP) PO SCH (06:24)
[2017-10-29 08:08] LABS: BASO % 1.2 % (0-2.0); EOS % 4.1 % (0-4.5); HEMATOCRIT 28.8 % (32.4-45.2); HEMOGLOBIN 9.6 GM/dL (10.7-15.3); MCH 28.6 pg (25.7-33.7); MCHC 33.2 g/dl (32.0-36.0); MEAN CELL VOLUME 86.3 fl (80-96); MEAN PLT VOLUME 7.8 fl (7.5-11.1); MONO % 10.3 % (3.8-10.2); NEUT % 60.4 % (42.8-82.8); PLATELET COUNT 584 K/MM3 (134-434); RBC 3.34 M/mm3 (3.60-5.2); WHITE BLOOD COUNT 8.5 K/mm3 (4.0-10.0)
[2017-10-29 08:10] LABS: CALCIUM 7.8 mg/dL (8.5-10.1); CHLORIDE 102 mmol/L (98-107); POTASSIUM 3.8 mmol/L (3.5-5.1); SODIUM 138 mmol/L (136-145)
[2017-10-29 08:13] LABS: ANION GAP 8 (8-16); BLOOD UREA NITROGEN 8 mg/dL (7-18); CO2 28 mmol/L (21-32); CREATININE 0.9 mg/dL (0.55-1.02); GLUCOSE,RANDOM 100 mg/dL (74-106)
[2017-10-29] MEDS: ALBUTEROL SO4 2.5/IPRATROPIUM 0.5 INH SOL 3 ML VIAL.NEB. NEB SCH ×3 (08:23→20:39)
[2017-10-29] MEDS ORDERED: PT OWN MED DRAWER 7, Y5N ONE (09:47)
[2017-10-29] MEDS: POLYETHYLENE GLYCOL 3350 119 GM BTL PO SCH (09:48)
[2017-10-29] MEDS: GABAPENTIN 300 MG CAPSULE (FP) PO SCH ×2 (09:48→21:58)
[2017-10-29] MEDS: FERROUS SO4/VIT C/FA 1 EACH TABLET.ER PO SCH (09:49)
--- NOTE | 2017-10-29 12:01 | PN ---
Progress Note (short form) - Note Progress Note: seen and examined in room laying in bed tmax 101.5 on Zosyn / c/s neg / influenza neg source ? Vital Signs Period Temp Pulse Resp BP Sys/Orourke Pulse Ox Last 24 Hr 98.3 F-101.5 F 78-100 16-18 123-137/66-77 96 laying in bed neck supple heart S1/S2 2/6 CHAPIS lungs clear bilat abd soft non tender surgical site with dessing in place / no drain ext no edema / no calf tenderness Iv sites clean / CBC, BMP 10/29/17 06:45 10/29/17 06:45 Microbiology 10/23/17 23:30 Blood - Peripheral Venous Blood Culture - Final NO GROWTH AFTER 5 DAYS INCUBATION 10/23/17 23:00 Blood - Peripheral Venous Blood Culture - Final NO GROWTH AFTER 5 DAYS INCUBATION 10/24/17 16:46 Nasopharyngeal Swab Influenza Types A,B Antigen (MILADIS) - Final 10/24/17 16:46 Nasopharyngeal Swab - Final 10/24/17 16:45 Sputum - Expectorated Gram Stain - Final 10/24/17 16:45 Sputum - Expectorated Sputum Culture - Final NORMAL RESPIRATORY [place] 10/24/17 10:13 Urine - Urine Clean Catch Urine Culture - Final NO GROWTH OBTAINED 10/24/17 16:45 Urine For Antigen Detection Legionella Antigen - Final 10/24/17 16:45 Urine For Antigen Detection Streptococcus pneumoniae Antigen (M - Final Active Medications Acetaminophen (Tylenol -) 650 mg PO Q4H PRN PRN Reason: FEVER Last Admin: 10/29/17 04:40 Dose: 650 mg Albuterol/Ipratropium (Duoneb -) 1 amp NEB RTID [facility] Last Admin: 10/29/17 08:23 Dose: 1 amp Atorvastatin Calcium (Lipitor -) 40 mg PO HS [facility] Last Admin: 10/28/17 22:08 Dose: 40 mg Docusate Sodium (Colace -) 100 mg PO TID [facility] Last Admin: 10/29/17 05:37 Dose: Not Given Folic Acid/Iron (Folitab 500 Caplet -) 1 each PO DAILY [facility] Last Admin: 10/29/17 09:49 Dose: 1 each Gabapentin (Neurontin -) 600 mg PO BID [facility] Last Admin: 10/29/17 09:48 Dose: 600 mg Heparin Sodium (Porcine) (Heparin -) 5,000 unit SQ TID [facility] Last Admin: 10/29/17 05:37 Dose: 5,000 unit Piperacillin Sod/Tazobactam (Sod 3.375 gm/ Dextrose) 50 mls @ 100 mls/hr IVPB Q8H-IV JODIE PRN Reason: Protocol Last Admin: 10/29/17 09:49 Dose: 100 mls/hr Levothyroxine Sodium (Synthroid -) 75 mcg PO DAILY@0700 [facility] Last Admin: 10/29/17 06:24 Dose: 75 mcg Ondansetron HCl (Zofran Injection) 4 mg IVPUSH Q6H PRN PRN Reason: NAUSEA Oxycodone HCl (Roxicodone -) 10 mg PO Q4H PRN PRN Reason: PAIN LEVEL 6-10 Last Admin: 10/29/17 09:48 Dose: 10 mg Oxycodone HCl (Roxicodone -) 10 mg PO Q4H PRN PRN Reason: PAIN LEVEL 1-5 Polyethylene Glycol (Miralax (For Daily Use) -) 17 gm PO DAILY [facility] Last Admin: 10/29/17 09:48 Dose: Not Given Zolpidem Tartrate (Ambien -) 10 mg PO HS PRN PRN Reason: INSOMNIA Assmt/ Plan # febrile continues fever [place] culture -- all neg emperic abx coverage will repeat blood c/s / possible CT scan Abx per ID - will discuss further with ID incentive spirometry / inc activity as tolerated # s/p revision / irrigation of L2-5 fusion due to inc pain 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
--- NOTE | 2017-10-29 13:24 | PN ---
Progress Note, Physician History of Present Illness: Awake, alert. Supine in bed. R Thigh pain. No swelling. No c/o back pain No c/o chest pain/ dyspnea/ cough No dysuria 3 loose BMs yesterday, none today Temp elevation noted WBC WNL Influenza screen negative BC (-) - Current Medication List Current Medications: Active Medications Acetaminophen (Tylenol -) 650 mg PO Q4H PRN PRN Reason: FEVER Last Admin: 10/29/17 04:40 Dose: 650 mg Albuterol/Ipratropium (Duoneb -) 1 amp NEB RTID [facility] Last Admin: 10/29/17 08:23 Dose: 1 amp Atorvastatin Calcium (Lipitor -) 40 mg PO HS [facility] Last Admin: 10/28/17 22:08 Dose: 40 mg Docusate Sodium (Colace -) 100 mg PO TID [facility] Last Admin: 10/29/17 05:37 Dose: Not Given Folic Acid/Iron (Folitab 500 Caplet -) 1 each PO DAILY [facility] Last Admin: 10/29/17 09:49 Dose: 1 each Gabapentin (Neurontin -) 600 mg PO BID [facility] Last Admin: 10/29/17 09:48 Dose: 600 mg Heparin Sodium (Porcine) (Heparin -) 5,000 unit SQ TID [facility] Last Admin: 10/29/17 05:37 Dose: 5,000 unit Piperacillin Sod/Tazobactam (Sod 3.375 gm/ Dextrose) 50 mls @ 100 mls/hr IVPB Q8H-IV JODIE PRN Reason: Protocol Last Admin: 10/29/17 09:49 Dose: 100 mls/hr Levothyroxine Sodium (Synthroid -) 75 mcg PO DAILY@0700 [facility] Last Admin: 10/29/17 06:24 Dose: 75 mcg Ondansetron HCl (Zofran Injection) 4 mg IVPUSH Q6H PRN PRN Reason: NAUSEA Oxycodone HCl (Roxicodone -) 10 mg PO Q4H PRN PRN Reason: PAIN LEVEL 6-10 Last Admin: 10/29/17 09:48 Dose: 10 mg Oxycodone HCl (Roxicodone -) 10 mg PO Q4H PRN PRN Reason: PAIN LEVEL 1-5 Polyethylene Glycol (Miralax (For Daily Use) -) 17 gm PO DAILY [facility] Last Admin: 10/29/17 09:48 Dose: Not Given Zolpidem Tartrate (Ambien -) 10 mg PO HS PRN PRN Reason: INSOMNIA - Objective Vital Signs: Vital Signs Temperature 99.1 F 10/29/17 10:00 Pulse Rate 78 10/29/17 10:00 Respiratory Rate 18 10/29/17 10:00 Blood Pressure 128/76 10/29/17 10:00 O2 Sat by Pulse Oximetry (%) 96 10/28/17 21:00 Constitutional: Yes: No Distress Eyes: Yes: Conjunctiva Clear Cardiovascular: Yes: Regular Rate and Rhythm, S1, S2 Respiratory: Yes: CTA Bilaterally Gastrointestinal: Yes: Normal Bowel Sounds, Soft. No: Tenderness Musculoskeletal: Yes: Other (No R thigh swelling or tenderness) Extremities: No: Calf Tenderness Edema: No Labs: CBC, BMP 10/29/17 06:45 10/29/17 06:45 Assessment/Plan Post op laminectomy wound debridement/ washout/ revision of screws Possible [facility] hospital aquired pneumonia Fever Leukocytosis - improved Cultures negative D/C antibiotics. Reculture off antibiotics for persistant temps Obtain stool C diff for recurrent loose stool
[2017-10-29] MEDS: ATORVASTATIN CA 40 MG TABLET (FP) PO SCH (21:58)
[2017-10-29] MEDS: ZOLPIDEM TARTRATE 5 MG TABLET PO PRN (23:08)
[2017-10-30] MEDS: HEPARIN NA (PORCINE) 5,000 UNITS/ML 1ML VIAL SQ SCH ×3 (05:56→22:15)
[2017-10-30] MEDS: DOCUSATE SODIUM 100 MG CAPSULE (FP) PO SCH ×3 (05:56→22:14)
[2017-10-30] MEDS: LEVOTHYROXINE NA 75 MCG TABLET (FP) PO SCH (06:31)
[2017-10-30] MEDS ORDERED: PT OWN MED DRAWER 7, Y5N ONE ×3 (07:05→22:44)
[2017-10-30 07:28] LABS: BASO % 0.9 % (0-2.0); EOS % 3.4 % (0-4.5); HEMATOCRIT 29.5 % (32.4-45.2); HEMOGLOBIN 9.9 GM/dL (10.7-15.3); LYMPH % 24.4 % (8-40); MCHC 33.5 g/dl (32.0-36.0); MEAN CELL VOLUME 86.4 fl (80-96); MEAN PLT VOLUME 7.6 fl (7.5-11.1); MONO % 10.7 % (3.8-10.2); NEUT % 60.6 % (42.8-82.8); PLATELET COUNT 652 K/MM3 (134-434); RBC 3.41 M/mm3 (3.60-5.2); WHITE BLOOD COUNT 9.6 K/mm3 (4.0-10.0)
[2017-10-30] MEDS: ALBUTEROL SO4 2.5/IPRATROPIUM 0.5 INH SOL 3 ML VIAL.NEB. NEB SCH ×3 (07:30→20:30)
[2017-10-30 07:48] LABS: CHLORIDE 100 mmol/L (98-107); POTASSIUM 4.6 mmol/L (3.5-5.1); SODIUM 138 mmol/L (136-145)
[2017-10-30] MEDS: oxyCODONE HCL 5 MG TABLET PO PRN ×4 (07:52→22:24)
[2017-10-30 07:53] LABS: ANION GAP 8 (8-16); BLOOD UREA NITROGEN 8 mg/dL (7-18); CALCIUM 8.4 mg/dL (8.5-10.1); CO2 30 mmol/L (21-32); GLUCOSE,RANDOM 92 mg/dL (74-106)
[2017-10-30] MEDS: POLYETHYLENE GLYCOL 3350 119 GM BTL PO SCH (09:58)
[2017-10-30] MEDS: GABAPENTIN 300 MG CAPSULE (FP) PO SCH ×2 (09:58→22:15)
[2017-10-30] MEDS: FERROUS SO4/VIT C/FA 1 EACH TABLET.ER PO SCH (09:58)
--- NOTE | 2017-10-30 10:46 | PN ---
Progress Note (short form) - Note Progress Note: seen and examined in room laying in bed tmax 100 off abx -- will reculture is spikes c/s neg / influenza neg source ? Vital Signs Period Temp Pulse Resp BP Sys/Orourke Pulse Ox Last 24 Hr 98.4 F-99.9 F 81-96 16-18 111-129/62-72 96 laying in bed neck supple heart S1/S2 2/6 CHAPIS lungs clear bilat abd soft non tender surgical site with dessing in place / no drain ext no edema / no calf tenderness Iv sites clean / CBC, BMP 10/30/17 06:30 10/30/17 06:30 Microbiology 10/23/17 23:30 Blood - Peripheral Venous Blood Culture - Final NO GROWTH AFTER 5 DAYS INCUBATION 10/23/17 23:00 Blood - Peripheral Venous Blood Culture - Final NO GROWTH AFTER 5 DAYS INCUBATION 10/24/17 16:46 Nasopharyngeal Swab Influenza Types A,B Antigen (MILADIS) - Final 10/24/17 16:46 Nasopharyngeal Swab - Final 10/24/17 16:45 Sputum - Expectorated Gram Stain - Final 10/24/17 16:45 Sputum - Expectorated Sputum Culture - Final NORMAL RESPIRATORY [place] 10/24/17 10:13 Urine - Urine Clean Catch Urine Culture - Final NO GROWTH OBTAINED 10/24/17 16:45 Urine For Antigen Detection Legionella Antigen - Final 10/24/17 16:45 Urine For Antigen Detection Streptococcus pneumoniae Antigen (M - Final Active Medications Acetaminophen (Tylenol -) 650 mg PO Q4H PRN PRN Reason: FEVER Last Admin: 10/29/17 04:40 Dose: 650 mg Albuterol/Ipratropium (Duoneb -) 1 amp NEB RTID [facility] Last Admin: 10/30/17 07:30 Dose: 1 amp Atorvastatin Calcium (Lipitor -) 40 mg PO HS [facility] Last Admin: 10/29/17 21:58 Dose: 40 mg Docusate Sodium (Colace -) 100 mg PO TID [facility] Last Admin: 10/30/17 05:56 Dose: 100 mg Folic Acid/Iron (Folitab 500 Caplet -) 1 each PO DAILY [facility] Last Admin: 10/30/17 09:58 Dose: 1 each Gabapentin (Neurontin -) 600 mg PO BID [facility] Last Admin: 10/30/17 09:58 Dose: 600 mg Heparin Sodium (Porcine) (Heparin -) 5,000 unit SQ TID [facility] Last Admin: 10/30/17 05:56 Dose: 5,000 unit Levothyroxine Sodium (Synthroid -) 75 mcg PO DAILY@0700 [facility] Last Admin: 10/30/17 06:31 Dose: 75 mcg Ondansetron HCl (Zofran Injection) 4 mg IVPUSH Q6H PRN PRN Reason: NAUSEA Oxycodone HCl (Roxicodone -) 10 mg PO Q4H PRN PRN Reason: PAIN LEVEL 6-10 Last Admin: 10/30/17 07:52 Dose: 10 mg Oxycodone HCl (Roxicodone -) 10 mg PO Q4H PRN PRN Reason: PAIN LEVEL 1-5 Polyethylene Glycol (Miralax (For Daily Use) -) 17 gm PO DAILY [facility] Last Admin: 10/30/17 09:58 Dose: Not Given Zolpidem Tartrate (Ambien -) 10 mg PO HS PRN PRN Reason: INSOMNIA Last Admin: 10/29/17 23:08 Dose: 10 mg Assmt/ Plan # febrile continues with low grade fever [place] culture -- all neg antibiotics d/c'd 10/29 will repeat blood c/s if spikes CXR -PA incentive spirometry / inc activity as tolerated # s/p revision / irrigation of L2-5 fusion due to inc pain 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
--- NOTE | 2017-10-30 11:47 | PN ---
Progress Note (short form) - Note Progress Note: Pt states that she is getting oob and ambulating with the walker. She does have pain but is overall improved. She takes oral pain meds and is able to ambulate. No longer having diarrhea. No headaches. Vital Signs Period Temp Pulse Resp BP Sys/Orourke Pulse Ox Last 24 Hr 98.4 F-99.9 F 81-96 16-18 111-129/62-72 96 GEN: A&0 x3, NAD Back: inc c/d/i with bipin, no erythema or drainage around the incision. No fulliness to the incision. Resecured the aqacel dressing with tegaderm. Neuro: 5/5 dorsi/plantar flexion and straight leg raise b/l. No calf tenderness or swelling noted b/l. CBC, BMP 10/30/17 06:30 10/30/17 06:30 CXR: b/l increased intersitial markings 10/30 Microbiology 10/24/17 16:45 Sputum - Expectorated Gram Stain - Final 10/24/17 16:45 Sputum - Expectorated Sputum Culture - Final NORMAL RESPIRATORY [place] 10/24/17 10:13 Urine - Urine Clean Catch Urine Culture - Final NO GROWTH OBTAINED 10/23/17 23:30 Blood - Peripheral Venous Blood Culture - Final NO GROWTH AFTER 5 DAYS INCUBATION 10/23/17 23:00 Blood - Peripheral Venous Blood Culture - Final NO GROWTH AFTER 5 DAYS INCUBATION A/P: 72 yo female s/p Lumbar laminectomies and fusion of L2-L5, POD#6 She remains afebrile x 24 hours and off antibiotics Continue oob/ambulate with TLSO brace/walker DT ppx with Heparin SQ case management for discharge planning D/w Dr. Rossi and agrees with the above plan
[2017-10-30] MEDS ORDERED: POLYETHYLENE GLYCOL 3350 119 GM BTL PO PRN (12:17)
[2017-10-30] MEDS: ATORVASTATIN CA 40 MG TABLET (FP) PO SCH (22:15)
[2017-10-30] MEDS: ACETAMINOPHEN 325 MG TABLET (FP) PO PRN (22:27)
[2017-10-31] MEDS: ZOLPIDEM TARTRATE 5 MG TABLET PO PRN ×2 (00:14→21:27)
[2017-10-31] MEDS: HEPARIN NA (PORCINE) 5,000 UNITS/ML 1ML VIAL SQ SCH ×2 (05:41→14:27)
[2017-10-31] MEDS: DOCUSATE SODIUM 100 MG CAPSULE (FP) PO SCH ×3 (05:41→21:26)
[2017-10-31] MEDS: oxyCODONE HCL 5 MG TABLET PO PRN ×4 (05:55→21:28)
[2017-10-31] MEDS: LEVOTHYROXINE NA 75 MCG TABLET (FP) PO SCH (06:42)
[2017-10-31] MEDS: ALBUTEROL SO4 2.5/IPRATROPIUM 0.5 INH SOL 3 ML VIAL.NEB. NEB SCH ×3 (07:40→20:20)
--- NOTE | 2017-10-31 09:54 | PN ---
Progress Note (short form) - Note Progress Note: seen and examined in room laying in bed tmax 99.9 off abx -- will reculture is spikes c/s neg / influenza neg source ? CXR reviewed request CXR ap/lat Vital Signs Period Temp Pulse Resp BP Sys/Orourke Pulse Ox Last 24 Hr 98.1 F-100.3 F 79-104 18-20 116-152/64-83 96 laying in bed neck supple heart S1/S2 2/6 CHAPIS lungs clear bilat abd soft non tender surgical site with dessing in place / no drain ext no edema / no calf tenderness Iv sites clean / CBC, BMP 10/30/17 06:30 10/30/17 06:30 Microbiology 10/23/17 23:30 Blood - Peripheral Venous Blood Culture - Final NO GROWTH AFTER 5 DAYS INCUBATION 10/23/17 23:00 Blood - Peripheral Venous Blood Culture - Final NO GROWTH AFTER 5 DAYS INCUBATION 10/24/17 16:46 Nasopharyngeal Swab Influenza Types A,B Antigen (MILADIS) - Final 10/24/17 16:46 Nasopharyngeal Swab - Final 10/24/17 16:45 Sputum - Expectorated Gram Stain - Final 10/24/17 16:45 Sputum - Expectorated Sputum Culture - Final NORMAL RESPIRATORY CL[place] 10/24/17 10:13 Urine - Urine Clean Catch Urine Culture - Final NO GROWTH OBTAINED 10/24/17 16:45 Urine For Antigen Detection Legionella Antigen - Final 10/24/17 16:45 Urine For Antigen Detection Streptococcus pneumoniae Antigen (M - Final Active Medications Acetaminophen (Tylenol -) 650 mg PO Q4H PRN PRN Reason: FEVER Last Admin: 10/29/17 04:40 Dose: 650 mg Albuterol/Ipratropium (Duoneb -) 1 amp NEB RTID [facility] Last Admin: 10/30/17 07:30 Dose: 1 amp Atorvastatin Calcium (Lipitor -) 40 mg PO HS [facility] Last Admin: 10/29/17 21:58 Dose: 40 mg Docusate Sodium (Colace -) 100 mg PO TID [facility] Last Admin: 10/30/17 05:56 Dose: 100 mg Folic Acid/Iron (Folitab 500 Caplet -) 1 each PO DAILY [facility] Last Admin: 10/30/17 09:58 Dose: 1 each Gabapentin (Neurontin -) 600 mg PO BID [facility] Last Admin: 10/30/17 09:58 Dose: 600 mg Heparin Sodium (Porcine) (Heparin -) 5,000 unit SQ TID [facility] Last Admin: 10/30/17 05:56 Dose: 5,000 unit Levothyroxine Sodium (Synthroid -) 75 mcg PO DAILY@0700 [facility] Last Admin: 10/30/17 06:31 Dose: 75 mcg Ondansetron HCl (Zofran Injection) 4 mg IVPUSH Q6H PRN PRN Reason: NAUSEA Oxycodone HCl (Roxicodone -) 10 mg PO Q4H PRN PRN Reason: PAIN LEVEL 6-10 Last Admin: 10/30/17 07:52 Dose: 10 mg Oxycodone HCl (Roxicodone -) 10 mg PO Q4H PRN PRN Reason: PAIN LEVEL 1-5 Polyethylene Glycol (Miralax (For Daily Use) -) 17 gm PO DAILY [facility] Last Admin: 10/30/17 09:58 Dose: Not Given Zolpidem Tartrate (Ambien -) 10 mg PO HS PRN PRN Reason: INSOMNIA Last Admin: 10/29/17 23:08 Dose: 10 mg Assmt/ Plan # febrile continues with low grade fever [place] culture -- all neg antibiotics d/c'd 10/29 will repeat blood c/s if spikes CXR -PA .. 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
[2017-10-31] MEDS ORDERED: PT OWN MED DRAWER 7, Y5N ONE ×2 (10:13→15:07)
[2017-10-31] MEDS: GABAPENTIN 300 MG CAPSULE (FP) PO SCH ×2 (10:15→21:27)
[2017-10-31] MEDS: FERROUS SO4/VIT C/FA 1 EACH TABLET.ER PO SCH (10:15)
--- NOTE | 2017-10-31 18:25 | PN ---
Progress Note (short form) - Note Progress Note: Patient is 72 year old female who is post-op day #7 s/p Lumbar Laminectomies and fusion L2-L5; seen at bedside and report doing well except for pain. She has been taking Oxycodone IR every 4 hours for pain. She would like an additional pain relief medication. She has been out of bed to chair and ambulating well. Diet well tolerated without nausea or vomiting. Vital Signs Temperature 98.3 F 10/31/17 16:30 Pulse Rate 95 H 10/31/17 16:30 Respiratory Rate 20 10/31/17 16:30 Blood Pressure 141/77 10/31/17 16:30 O2 Sat by Pulse Oximetry (%) 98 10/31/17 09:00 Gen: AAOx3; stable; no acute distress Surgical incision clean; dry; no drainage; nontender to palpation; aquacell dressing intact. A/P: Patient is a 72 year old female who is post-op day #7 s/p Lumbar Laminectomies and fusion L2-L5; doing well; requesting additional pain relief. Plan: Lidoderm patch to lumbar spine; avoid surgical incision Continue wearing TLSO brace when out of bed/ambulating Discharge planning by medical team/case management
[2017-10-31] MEDS: LIDOCAINE 5% TOPICAL PATCH TP SCH (21:26)
[2017-10-31] MEDS: ATORVASTATIN CA 40 MG TABLET (FP) PO SCH (21:27)
[2017-10-31] MEDS: ACETAMINOPHEN 325 MG TABLET (FP) PO PRN (21:27)
[2017-11-01] MEDS: DOCUSATE SODIUM 100 MG CAPSULE (FP) PO SCH ×2 (06:38→13:39)
[2017-11-01] MEDS: LEVOTHYROXINE NA 75 MCG TABLET (FP) PO SCH (06:38)
[2017-11-01 07:36] LABS: BASO % 0.7 % (0-2.0); HEMATOCRIT 32.4 % (32.4-45.2); HEMOGLOBIN 10.6 GM/dL (10.7-15.3); LYMPH % 20.7 % (8-40); MCH 28.5 pg (25.7-33.7); MCHC 32.7 g/dl (32.0-36.0); MEAN CELL VOLUME 87.2 fl (80-96); MEAN PLT VOLUME 7.5 fl (7.5-11.1); MONO % 8.7 % (3.8-10.2); NEUT % 66.9 % (42.8-82.8); PLATELET COUNT 792 K/MM3 (134-434); RBC 3.71 M/mm3 (3.60-5.2); RDW 14.3 % (11.6-15.6)
[2017-11-01] MEDS: ALBUTEROL SO4 2.5/IPRATROPIUM 0.5 INH SOL 3 ML VIAL.NEB. NEB SCH ×2 (07:47→14:21)
[2017-11-01 08:10] LABS: CHLORIDE 100 mmol/L (98-107); POTASSIUM 5.1 mmol/L (3.5-5.1); SODIUM 137 mmol/L (136-145)
[2017-11-01] MEDS: oxyCODONE HCL 5 MG TABLET PO PRN ×2 (08:18→12:01)
[2017-11-01] MEDS: ACETAMINOPHEN 325 MG TABLET (FP) PO PRN ×2 (08:19→12:02)
[2017-11-01 08:22] LABS: ANION GAP 13 (8-16); BLOOD UREA NITROGEN 9 mg/dL (7-18); CALCIUM 9.3 mg/dL (8.5-10.1); CO2 24 mmol/L (21-32); CREATININE 0.9 mg/dL (0.55-1.02); GLUCOSE,RANDOM 100 mg/dL (74-106)
[2017-11-01] MEDS ORDERED: PT OWN MED DRAWER 7, Y5N ONE (09:25)
[2017-11-01] MEDS: GABAPENTIN 300 MG CAPSULE (FP) PO SCH (09:29)
[2017-11-01] MEDS: LIDOCAINE 5% TOPICAL PATCH TP SCH (09:30)
[2017-11-01] MEDS: FERROUS SO4/VIT C/FA 1 EACH TABLET.ER PO SCH (09:30)
[2017-11-01] MEDS ORDERED: LIDOCAINE PATCH REMOVAL MC SCH (10:00)
[2017-11-01 11:23] VITALS: BP 117/68; PULSE 77; TEMP 98.8
[2017-11-01] MEDS ORDERED: CYCLOBENZAPRINE HCL 10 MG TABLET (FP) PO ONE (12:07)
--- NOTE | 2017-11-01 12:08 | DS ---
Physical Examination Vital Signs: Vital Signs Temperature 98.8 F 11/01/17 09:00 Pulse Rate 77 11/01/17 09:00 Respiratory Rate 20 11/01/17 09:00 Blood Pressure 117/68 11/01/17 09:00 O2 Sat by Pulse Oximetry (%) 98 11/01/17 09:00 Findings/Remarks: : on admission Laura Adhikari is a 72 year old Latin female who was referred by Dr. Holcomb with a history of back and leg pain which did not respond to conservative measures. She stated greater than one year of significant back and Right leg radicular pain. She described her pain as constant and with walking she can feel her bones rubbing. She described her pain as debilitating and affects her ADLs. 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 She will be discharged home with VNS services -- scheduled for tomorrow am patient is aware. Constitutional: Yes: Well Nourished, No Distress, Calm Eyes: Yes: WNL HENT: Yes: WNL Neck: Yes: WNL Cardiovascular: Yes: WNL Respiratory: Yes: WNL Gastrointestinal: Yes: Normal Bowel Sounds, Soft, Abdomen, Obese Renal/: Yes: WNL Breast(s): Yes: WNL Musculoskeletal: Yes: WNL Extremities: Yes: WNL Edema: No Peripheral Pulses WNL: Yes Integumentary: Yes: WNL Wound/Incision: Yes: Clean/Dry Neurological: Yes: Alert, Oriented, Unsteady Gait (post op recovery) Psychiatric: Yes: Alert, Oriented Labs: CBC, BMP 11/01/17 06:30 11/01/17 06:30 Discharge Summary Reason For Visit: LUMBAR STENOSIS WITH LUMBAR DEGENERATIVE SCOLIOSIS Current Active Problems Lumbar disc herniation with radiculopathy (Acute) S/P lumbar fusion (Acute) Condition: Improved - Instructions Diet, Activity, Other Instructions: activity as per surgical team Disposition: HOME - Home Medications Comprehensive Discharge Medication List: Ambulatory Orders Atorvastatin Ca [Lipitor] 40 mg PO HS 10/13/17 Levothyroxine [Synthroid -] 75 mcg PO DAILY@0700 10/13/17 Zolpidem Tartrate [Ambien] 10 mg PO HS 10/13/17 oxycodone 10 gm PO q4 PRN flexeril 10 mg TID prn colace 200 mg BID miralax 17gm bid
--- NOTE | 2017-11-01 12:19 | PN ---
Progress Note (short form) - Note Progress Note: Patient is 72 year old female who is post-op day #8 s/p Lumbar Laminectomies and fusion L2-L5; seen at bedside and reports doing well except some leg spasms. Pain better controlled with addition of Lidoderm patch. She is out of bed and ambulating well. She feels ready for discharge home and declined option for rehabilitation facility. She has support of son and in-laws at home. Vital Signs Temperature 98.8 F 11/01/17 09:00 Pulse Rate 77 11/01/17 09:00 Respiratory Rate 20 11/01/17 09:00 Blood Pressure 117/68 11/01/17 09:00 O2 Sat by Pulse Oximetry (%) 98 11/01/17 09:00 Gen: AAOx3; stable; no acute distress Surgical incision clean; dry; no drainage; nontender to palpation; aquacell dressing intact. A/P: Patient is a 72 year old female who is post-op day #8 s/p Lumbar Laminectomies and fusion L2-L5; doing well. Pending discharge home today. Plan: May go with Home Physical Therapy for core strengthening; stretching; ROM; modalities - avoid extensive flexion and extension; continue TLSO brace when OOB and ambulating. May continue Lidoderm patch to lumbar spine; avoid surgical incision - if approved by insurance company Add Flexeril 5 mg PO q8h PRN spasm Wean Oxycodone Home with nursing; home health aide services and Physical Therapy Case discussed with Dr. Mary MD
[2017-11-02] MEDS ORDERED: CYCLOBENZAPRINE HCL 5 MG TABLET PO SCH (10:00)
== END 2017-11-01 15:05 | disposition home or self-care (01) | DRG 459 ==
LOC: JSAMEDAYSX 05:07 → EDSTATUS 12:30 → J8W 21:54
PROVIDERS: ADMIT Family Medicine; ATTEND Family Medicine
PROC: 00NY0ZZ Release Lumbar Spinal Cord, Open Approach (ICD-10-PCS; 2017-10-19)
PROC: 0SG1071 Fusion of 2 or more Lumbar Vertebral Joints with Autologous Tissue Substitute, Posterior Approach, Posterior Column, Open Approach (ICD-10-PCS; principal; 2017-10-19 12:30)
PROC: 30233H1 Transfusion of Nonautologous Whole Blood into Peripheral Vein, Percutaneous Approach (ICD-10-PCS; 2017-10-22)
PROC: 0QW004Z Revision of Internal Fixation Device in Lumbar Vertebra, Open Approach (ICD-10-PCS; 2017-10-24)
PROC: 009U00Z Drainage of Spinal Canal with Drainage Device, Open Approach (ICD-10-PCS; 2017-10-24)
PROC: 3E10X8Z Irrigation of Skin and Mucous Membranes using Irrigating Substance (ICD-10-PCS; 2017-10-24)
DX: M51.16 Intervertebral disc disorders with radiculopathy, lumbar region (principal); J18.9 Pneumonia, unspecified organism; G95.20 Unspecified cord compression; T81.4XXA Infection following a procedure, initial encounter; Y84.8 Other medical procedures as the cause of abnormal reaction of the patient, or of later complication, without mention of misadventure at the time of the procedure; M43.16 Spondylolisthesis, lumbar region; E03.9 Hypothyroidism, unspecified; E78.5 Hyperlipidemia, unspecified; D64.9 Anemia, unspecified; M41.9 Scoliosis, unspecified; M85.88 Other specified disorders of bone density and structure, other site
CPT/HCPCS: 36415; 36430; 36511; 71045-TC-FY; 71046-TC-FY; 72131-TC; 76000-TC-FY; 80048; 81003; 81015; 82040; 82962; 83735; 85025; 85027; 86850; 86900; 86901; 86922; 87040; 87070; 87086; 87205; 87804; 87899; 88304-TC; 94640; 94760; 97116-GP; 97161-GP; J1170; J1644; P9038; P9058

== ENCOUNTER 2018-02-15 05:10 | Inpatient (IN) | payer OTHER ==
[2018-02-07 12:10] VITALS: BMI 28.3
[2018-02-20] MEDS ORDERED: GENTAMICIN SO4 80 MG/2 ML VIAL ONE (07:21)
[2018-02-20] MEDS ORDERED: LIDOCAINE 1%/EPI 1:100000 (20 ML MULTI DOSE VIAL) ONE (07:21)
[2018-02-20] MEDS ORDERED: THROMBIN (BOVINE) 20,000 UNIT VIAL TP ONE (07:21)
[2018-02-20] MEDS ORDERED: THROMBIN (BOVINE) 5,000 UNIT VIAL TP ONE (07:21)
[2018-02-20] MEDS ORDERED: BUPIVACAINE HCL/PF 0.5% (5MG/ML) 10 ML VIAL ONE (07:21)
[2018-02-20] MEDS ORDERED: BACITRACIN 15 GM TUBE TOPICAL OINTMENT ONE (07:25)
--- NOTE | 2018-02-20 07:39 | HP ---
History & Physical Update - History History: No Change - Physical Physical: No Change - Assessment Assessment: No Change - Plan Plan: No Change (no changes since visit with Dr Hernandez on 02/13/18)
[2018-02-20] MEDS ORDERED: ROCURONIUM BROMIDE 50 MG/5 ML VIAL ONE ×2 (08:05→09:16)
[2018-02-20] MEDS ORDERED: PROPOFOL 20 ML ONE ×2 (08:05→09:11)
[2018-02-20] MEDS ORDERED: MIDAZOLAM HCL 2 MG/2 ML SINGLE DOSE VIAL ONE (08:05)
[2018-02-20] MEDS ORDERED: LIDOCAINE HCL/PF 2% SDV 5ML VIAL ONE (08:06)
[2018-02-20] MEDS ORDERED: ceFAZolin SODIUM 1 GM VIAL ONE ×2 (08:28→15:08)
[2018-02-20] MEDS ORDERED: VANCOMYCIN 1,000 MG VIAL (RESTRICTED TO ID ONLY) ONE (08:30)
[2018-02-20] MEDS ORDERED: ceFAZolin SODIUM 1 GM VIAL IVPB ONE (08:30)
[2018-02-20] MEDS ORDERED: VANCOMYCIN 1,000 MG VIAL (RESTRICTED TO ID ONLY) IVPB ONE (08:32)
[2018-02-20] MEDS ORDERED: DEXAMETHASONE SOD PHOSPHATE 4 MG/1 ML VIAL ONE ×2 (08:34→10:12)
[2018-02-20] MEDS ORDERED: ONDANSETRON 4 MG/2 ML VIAL ONE ×2 (08:34→10:12)
[2018-02-20] MEDS ORDERED: ACETAMINOPHEN INJECTION 100 ML IVPB ONE (10:09)
[2018-02-20] MEDS ORDERED: GLYCOPYRROLATE 0.2 MG/1 ML VIAL ONE (10:27)
[2018-02-20] MEDS ORDERED: NEOSTIGMINE METHYLSULFATE 0.5 MG/ML - 10 ML MDV ONE (10:27)
[2018-02-20] MEDS ORDERED: BUPIVACAINE HCL/PF 0.5% (5MG/ML) 10 ML VIAL IJ ONE (10:28)
[2018-02-20] MEDS ORDERED: ONDANSETRON 4 MG/2 ML VIAL IVPUSH PRN ×2 (11:02→11:19)
[2018-02-20] MEDS ORDERED: PROMETHAZINE HCL 25 MG/1 ML VIAL IVPB PRN (11:02)
[2018-02-20] MEDS ORDERED: DEXAMETHASONE SOD PHOSPHATE 4 MG/1 ML VIAL IVPUSH PRN (11:02)
[2018-02-20] MEDS ORDERED: HYDROmorphone *PCA* 10MG/50ML DISP.SYRIN PCA ONE (11:10)
[2018-02-20] MEDS ORDERED: diphenhydrAMINE HCL 25 MG CAPSULE (FP) PO PRN (11:19)
[2018-02-20] MEDS ORDERED: LACTATED RINGERS SOLUTION 1,000 ML/1,000 ML INFUS.BAG IV SCH (11:30)
[2018-02-20] MEDS ORDERED: IBUPROFEN 400 MG TABLET (FP) PO ONE (11:36)
[2018-02-20] MEDS ORDERED: ACETAMINOPHEN 325 MG TABLET (FP) PO PRN (11:42)
--- NOTE | 2018-02-20 12:58 | OP ---
Operative Note - Note: Operative Date: 02/20/18 Pre-Operative Diagnosis: splondylosis, loss of lordosis, cervical radiculopathy Operation: exploration of hardware, C3-T1 laminectomies, C7-T1 osteotomies, deformity correction, C3-C7 posterior fusion Post-Operative Diagnosis: Same as Pre-op Surgeon: Karsten Rossi Hotel Office Manager: Cara Feldman Anesthesiologist/GRINDING SUPERVISOR: Isaías Rodriguez Anesthesia: General Estimated Blood Loss (mls): 250 Drains & Tubes with Location: j/p right t spine Drains, Volume Out (mls): 50 (granda) Fluid Volume Replaced (mls): 1,000 Operative Report Dictated: Yes
--- NOTE | 2018-02-20 13:00 | SURG ---
Surgery Dampener Operator Note Dampener Operator: Cara Feldman PA-C Date of Service: 02/20/18 Diagnosis: splondylosis, loss of lordosis, cervical radiculopathy Procedure: exploration of hardware, C3-T1 laminectomies, C7-T1 osteotomies, deformity correction, C3-C7 posterior fusion I was present for the entirety of the operative procedure. For further detail, please refer to operative report. Visit type - Case Type Case Type: Scheduled - Emergency Emergency Visit: No - New patient This patient is new to me today: Yes Date on this admission: 02/20/18
[2018-02-20] MEDS: DOCUSATE SODIUM 100 MG CAPSULE (FP) PO SCH ×2 (14:46→22:41)
[2018-02-20] MEDS ORDERED: DEXTROSE 5%-WATER - 50 ML IVPB ONE (15:08)
[2018-02-20] MEDS: CEFAZOLIN 1 GM in DEXTROSE 5%-WATER - 50 ML IVPB SCH ×2 (15:13→20:41)
[2018-02-20] MEDS: LACTATED RINGERS SOLUTION 1,000 ML IV SCH (15:16)
[2018-02-20] MEDS ORDERED: PREGABALIN 100 MG CAPSULE PO SCH (22:00)
[2018-02-20] MEDS ORDERED: PT OWN MED DRAWER 7, Y5N ONE (22:07)
[2018-02-20] MEDS: ATORVASTATIN CA 40 MG TABLET (FP) PO SCH (22:41)
[2018-02-20] MEDS: ZOLPIDEM TARTRATE 5 MG TABLET PO PRN (22:42)
[2018-02-20] MEDS: PREGABALIN 50 MG CAPSULE PO SCH (23:02)
[2018-02-21] MEDS: CEFAZOLIN 1 GM in DEXTROSE 5%-WATER - 50 ML IVPB SCH ×3 (02:35→17:58)
[2018-02-21] MEDS: DOCUSATE SODIUM 100 MG CAPSULE (FP) PO SCH ×3 (06:29→21:56)
[2018-02-21] MEDS: LEVOTHYROXINE NA 75 MCG TABLET (FP) PO SCH (06:29)
--- NOTE | 2018-02-21 08:23 | PN ---
Progress Note (short form) - Note Progress Note: POD #1 Patient laying in bed with HOB at 30 degrees. Wearing c-collar as directed (too large for her). C/o incisional pain. Pain /. Pain control via VENDING MACHINE TECHNICIAN. Hasn't been OOB yet. Still c/o RUE tingling. Denies n/v/f/c, CP, SOB, numbness, dysphagia, weakness or tingling. Last Vital Signs Temp Pulse Resp BP Pulse Ox 99.1 F 83 20 152/79 100 02/21/18 07:24 02/21/18 07:24 02/21/18 07:24 02/21/18 07:24 02/20/18 12:45 OUTPUTS PE Gen: alert. nad. Neck: Anterior neck is soft/supple. Posterior with dressing c/d/i. No palpable hematoma. AILYN 190mL (serosang) on bulb suction. Neuro: GMNVI bilat. Strength 5/5 bilat LE: SCDs bilat. Soft and NT Problem List - Problems (1) Cervical spondylosis with radiculopathy Assessment/Plan: POD #1 s/p exploration of hardware, C3-T1 laminectomies, C7-T1 osteotomies, deformity correction, C3-C7 posterior fusion Will see if they have a more appropriate sized c-collar - may take off to eat food - wear 23/24 hours a day Physical Therapy VENDING MACHINE TECHNICIAN Will add Ofirmev 1gm IV Q8H RTC for 24 hours dc granda cath and begin TOV ABX to cont while AILYN is in. Diet as tolerated Will need to go to REHAB Above plan discussed with Dr. Rossi and agrees. Code(s): M47.22 - OTHER SPONDYLOSIS WITH RADICULOPATHY, CERVICAL REGION
[2018-02-21 08:44] LABS: HEMATOCRIT 32.7 % (32.4-45.2); HEMOGLOBIN 10.8 GM/dL (10.7-15.3); MEAN CELL VOLUME 84.6 fl (80-96); MEAN PLT VOLUME 9.4 fl (7.5-11.1); PLATELET COUNT 318 K/MM3 (134-434); RBC 3.86 M/mm3 (3.60-5.2); RDW 14.4 % (11.6-15.6); WHITE BLOOD COUNT 16.4 K/mm3 (4.0-10.0)
--- NOTE | 2018-02-21 08:47 | PN ---
Progress Note (short form) - Note Progress Note: Pot op day#1.S/P Exploration of posterior cervical fusion,C3-T1 laminectomy,C7- T1 osteotomy and C3-T1 fusion and instrumentation under Ga uneventful.Patient stable and c/o pain score of 6-7/10 on dilaudid SHADE MAKER.Will add ofirmev to it and will f/u tomorrow.
[2018-02-21] MEDS ORDERED: ceFAZolin SODIUM 1 GM VIAL ONE ×2 (09:12→17:30)
[2018-02-21] MEDS ORDERED: DEXTROSE 5%-WATER - 50 ML IVPB ONE ×2 (09:12→17:31)
[2018-02-21] MEDS: ACETAMINOPHEN 1000 MG/100 ML VIAL (NON FORMULARY) IVPB SCH ×2 (09:15→16:13)
[2018-02-21] MEDS: FOLIC ACID 1 MG TABLET (FP) PO SCH (09:17)
[2018-02-21] MEDS: HEPARIN NA (PORCINE) 5,000 UNITS/ML 1ML VIAL SQ SCH ×2 (09:17→16:13)
[2018-02-21] MEDS: FERROUS SO4 325 MG TABLET (FP) PO SCH (09:17)
[2018-02-21 09:18] LABS: CHLORIDE 100 mmol/L (98-107); POTASSIUM 3.9 mmol/L (3.5-5.1); SODIUM 137 mmol/L (136-145)
[2018-02-21 09:34] LABS: ANION GAP 11 (8-16); BLOOD UREA NITROGEN 12 mg/dL (7-18); CALCIUM 8.7 mg/dL (8.5-10.1); CO2 26 mmol/L (21-32); CREATININE 0.7 mg/dL (0.55-1.02); GLUCOSE,RANDOM 99 mg/dL (74-106)
[2018-02-21] MEDS: LACTATED RINGERS SOLUTION 1,000 ML IV SCH (11:27)
[2018-02-21] MEDS: HYDROmorphone *PCA* 10MG/50ML DISP.SYRIN PCA SCH ×2 (12:36→12:37)
[2018-02-21] MEDS: ATORVASTATIN CA 40 MG TABLET (FP) PO SCH (21:56)
[2018-02-21] MEDS: PREGABALIN 50 MG CAPSULE PO SCH (21:56)
--- NOTE | 2018-02-21 23:03 | CONSULT ---
Consult - text type - Consultation Consultation Note: 72 y/o female with chronic back pain who underwent surgery 02/20/18, POD #1 s/p exploration of hardware, C3-T1 laminectomies, C7-T1 osteotomies, deformity correction, C3-C7 posterior fusion states feeling better today OOB to chair tolerating PO wearing neck brace -- reports "this on fits better" Vital Signs Period Temp Pulse Resp BP Sys/Orourke Pulse Ox Last 24 Hr 98.3 F-99.6 F 63-97 18-20 141-160/73-[address] lungs clear bilat heart S1/S2 abd soft non tender ext FROM no edema LE CBC, BMP 02/21/18 07:09 02/21/18 07:09 Active Medications Acetaminophen (Ofirmev Injection -) 1,000 mg IVPB Q8H [facility] Stop: 02/22/18 08:46 Last Admin: 02/21/18 16:13 Dose: 1,000 mg Atorvastatin Calcium (Lipitor -) 40 mg PO HS [facility] Last Admin: 02/21/18 21:56 Dose: 40 mg Dexamethasone Sodium Phosphate (Decadron Injection -) 4 mg IVPUSH ONCE PRN PRN Reason: NAUSEA AND/OR VOMITING Diphenhydramine HCl (Benadryl Injection -) 12.5 mg IVPUSH ONCE PRN PRN Reason: FOR ITCHING Diphenhydramine HCl (Benadryl -) 25 mg PO Q6H PRN PRN Reason: FOR ITCHING Docusate Sodium (Colace -) 100 mg PO TID [facility] Last Admin: 02/21/18 21:56 Dose: 100 mg Fentanyl (Sublimaze Injection -) 50 mcg IVPUSH [id number] PRN PRN Reason: PAIN-PACU ORDER X 4 DOSES ONLY Ferrous Sulfate (Feosol -) 325 mg PO DAILY [facility] Last Admin: 02/21/18 09:17 Dose: 325 mg Folic Acid (Folic Acid -) 1 mg PO DAILY [facility] Last Admin: 02/21/18 09:17 Dose: 1 mg Heparin Sodium (Porcine) (Heparin -) 5,000 unit SQ Q8H [facility] Last Admin: 02/21/18 16:13 Dose: 5,000 unit Hydromorphone HCl (Dilaudid Die Mechanic -) 0 mg ANTIQUE CLOCK REPAIRER ANTIQUE CLOCK REPAIRER [facility]; Protocol Stop: 02/27/18 11:04 Last Admin: 02/21/18 12:37 Dose: Not Given Cefazolin Sodium 1 gm/ (Dextrose) 50 mls @ 100 mls/hr IVPB Q8H-IV JODIE Last Admin: 02/21/18 17:58 Dose: 100 mls/hr Levothyroxine Sodium (Synthroid -) 75 mcg PO DAILY@0700 [facility] Last Admin: 02/21/18 06:29 Dose: 75 mcg Ondansetron HCl (Zofran Injection) 4 mg IVPUSH Q4H PRN PRN Reason: NAUSEA AND/OR VOMITING Ondansetron HCl (Zofran Injection) 4 mg IVPUSH Q6H PRN PRN Reason: NAUSEA Pregabalin (Lyrica -) 100 mg PO HS JODIE Last Admin: 02/21/18 21:56 Dose: 100 mg Promethazine HCl (Phenergan Injection -) 12.5 mg IVPB Q6H PRN PRN Reason: NAUSEA AND/OR VOMITING Zolpidem Tartrate (Ambien -) 10 mg PO HS PRN PRN Reason: INSOMNIA Last Admin: 02/20/18 22:42 Dose: 10 mg Assmt #POD #1 s/p exploration of hardware, C3-T1 laminectomies, C7-T1 osteotomies, deformity correction, C3-C7 posterior fusion pain management d/c kalee # Hypothyroid continue synthroid TFT - nl # HLD continue home meds # Chronic pain / DJD/OA
[2018-02-21] MEDS ORDERED: HYDROmorphone *PCA* 10MG/50ML DISP.SYRIN PCA SCH (23:06)
[2018-02-22] MEDS: HEPARIN NA (PORCINE) 5,000 UNITS/ML 1ML VIAL SQ SCH ×4 (00:08→23:20)
[2018-02-22] MEDS: ACETAMINOPHEN 1000 MG/100 ML VIAL (NON FORMULARY) IVPB SCH ×2 (00:09→09:04)
[2018-02-22] MEDS ORDERED: ceFAZolin SODIUM 1 GM VIAL ONE ×4 (00:39→22:37)
[2018-02-22] MEDS ORDERED: DEXTROSE 5%-WATER - 50 ML IVPB ONE ×4 (00:40→22:39)
[2018-02-22] MEDS: FERROUS SO4 325 MG TABLET (FP) PO SCH (09:12)
[2018-02-22] MEDS: CEFAZOLIN 1 GM in DEXTROSE 5%-WATER - 50 ML IVPB SCH ×3 (09:12→17:40)
[2018-02-22] MEDS: FOLIC ACID 1 MG TABLET (FP) PO SCH (09:12)
--- NOTE | 2018-02-22 10:27 | PN ---
Progress Note (short form) - Note Progress Note: patient in bed "feeling better however having difficult time with ADLs requesting STR instead of home discharge Vital Signs Period Temp Pulse Resp BP Sys/Orourke Pulse Ox Last 24 Hr 98.3 F-99.2 F 63-97 18-20 141-153/73-[address] neck supple heart S1/S2 lungs clear bilater abd soft non tender ext no calf tenderness / no edema CBC, BMP 02/21/18 07:09 02/21/18 07:09 Active Medications Atorvastatin Calcium (Lipitor -) 40 mg PO HS [facility] Last Admin: 02/21/18 21:56 Dose: 40 mg Dexamethasone Sodium Phosphate (Decadron Injection -) 4 mg IVPUSH ONCE PRN PRN Reason: NAUSEA AND/OR VOMITING Diphenhydramine HCl (Benadryl Injection -) 12.5 mg IVPUSH ONCE PRN PRN Reason: FOR ITCHING Diphenhydramine HCl (Benadryl -) 25 mg PO Q6H PRN PRN Reason: FOR ITCHING Docusate Sodium (Colace -) 100 mg PO TID [facility] Last Admin: 02/21/18 21:56 Dose: 100 mg Fentanyl (Sublimaze Injection -) 50 mcg IVPUSH [id number] PRN PRN Reason: PAIN-PACU ORDER X 4 DOSES ONLY Ferrous Sulfate (Feosol -) 325 mg PO DAILY [facility] Last Admin: 02/22/18 09:12 Dose: 325 mg Folic Acid (Folic Acid -) 1 mg PO DAILY [facility] Last Admin: 02/22/18 09:12 Dose: 1 mg Heparin Sodium (Porcine) (Heparin -) 5,000 unit SQ Q8H [facility] Last Admin: 02/22/18 09:17 Dose: Not Given Hydromorphone HCl (Dilaudid Aircraft Tool Maker -) [address] ATTENDANT [facility]; Protocol Stop: 02/27/18 11:04 Last Admin: 02/21/18 23:09 Dose: 10 mg Cefazolin Sodium 1 gm/ (Dextrose) 50 mls @ 100 mls/hr IVPB Q8H-IV [facility] Last Admin: 02/22/18 09:17 Dose: 100 mls/hr Levothyroxine Sodium (Synthroid -) 75 mcg PO DAILY@0700 [facility] Last Admin: 02/21/18 06:29 Dose: 75 mcg Ondansetron HCl (Zofran Injection) 4 mg IVPUSH Q4H PRN PRN Reason: NAUSEA AND/OR VOMITING Ondansetron HCl (Zofran Injection) 4 mg IVPUSH Q6H PRN PRN Reason: NAUSEA Pregabalin (Lyrica -) 100 mg PO HS [facility] Last Admin: 02/21/18 21:56 Dose: 100 mg Promethazine HCl (Phenergan Injection -) 12.5 mg IVPB Q6H PRN PRN Reason: NAUSEA AND/OR VOMITING Zolpidem Tartrate (Ambien -) 10 mg PO HS PRN PRN Reason: INSOMNIA Last Admin: 02/20/18 22:42 Dose: 10 mg Assmt #POD #2 s/p exploration of hardware, C3-T1 laminectomies, C7-T1 osteotomies, deformity correction, C3-C7 posterior fusion pain management d/c kalee # Hypothyroid continue synthroid TFT - nl # HLD continue home meds # Chronic pain / DJD/OA will need to arrange for STR
--- NOTE | 2018-02-22 11:15 | PN ---
Progress Note (short form) - Note Progress Note: Surgery POD #2 s/p exploration of hardware, C3-T1 laminectomies, C7-T1 osteotomies, deformity correction, C3-C7 posterior fusion. Patient seen and examined at the bedside with no new complaints. States she has pain with movement (as expected) but the paresthesias in the UE is improved. She has been tolerating a regular diet and denies CP, SOB, N/V, Fever or chills. Vital Signs Temp 99.2 F 18 22:00 Pulse 86 02/21/18 23:39 Resp 18 02/21/18 23:39 BP 153/79 02/21/18 23:39 Pulse Ox 97 02/21/18 21:00 Intake & Output 18 02/21/18 02/22/18 11:59 23:59 11:59 Intake Total 1500 Output Total 1125 3430 Balance 375 -3430 Intake: IV 700 LACTATED RINGERS SOLUTION 700 1,000 ml In 1,000 ml @ 100 mls/hr IV ASDIR JODIE Rx#:[id number] Oral 800 Output: Drainage 25 130 Upper Posterior Neck 25 130 Urine 1100 3300 Rosales 1100 1400 Void 1300 Other: Voiding Method Indwelling Catheter Toilet Bowel Movement No CBC, BMP 18 07:09 02/21/18 07:09 Drain output per nursin=25 overnight PE: A&Ox3, NAD unlabored resp on RA Neck-posterior incision c/d/i with bipin insitu, no evidence of d/c erythema, edema or collection. J/p drain removed with tip fully intact, drain site clean and dry with no active d/c, Pressure dressing applied 5/5 tomato grader strength b/l UE B/L LE compartments soft, supple and non-tender with +2 pedal pulses Problem List - Problems (1) S/P lumbar fusion Assessment/Plan: POD #2 s/p multilevel fusion doing well. 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
--- NOTE | 2018-02-22 12:36 | PN ---
Progress Note (short form) - Note Progress Note: POD #2. VSS. Pt. doing well, sitting at side of bed having lunch. Pain fairly controlled. FOOD PORTER discontinued earlier in preparation for discharge. Will sign off.
[2018-02-22] MEDS ORDERED: oxyCODONE HCL 5 MG TABLET PO PRN (13:18)
[2018-02-22] MEDS: DOCUSATE SODIUM 100 MG CAPSULE (FP) PO SCH ×3 (13:38→21:34)
[2018-02-22] MEDS: LEVOTHYROXINE NA 75 MCG TABLET (FP) PO SCH (15:37)
[2018-02-22] MEDS: oxyCODONE HCL 5 MG TABLET PO PRN ×2 (17:34→20:38)
[2018-02-22] MEDS: ATORVASTATIN CA 40 MG TABLET (FP) PO SCH (21:34)
[2018-02-22] MEDS: PREGABALIN 50 MG CAPSULE PO SCH (21:34)
[2018-02-22] MEDS: ZOLPIDEM TARTRATE 5 MG TABLET PO PRN (22:47)
[2018-02-22] MEDS: ACETAMINOPHEN 325 MG TABLET (FP) PO PRN (22:47)
[2018-02-23] MEDS: CEFAZOLIN 1 GM in DEXTROSE 5%-WATER - 50 ML IVPB SCH ×3 (01:19→17:03)
[2018-02-23] MEDS: DOCUSATE SODIUM 100 MG CAPSULE (FP) PO SCH ×3 (05:52→22:06)
[2018-02-23] MEDS: oxyCODONE HCL 5 MG TABLET PO PRN ×4 (05:53→22:06)
[2018-02-23] MEDS: ACETAMINOPHEN 325 MG TABLET (FP) PO PRN (05:55)
[2018-02-23] MEDS: LEVOTHYROXINE NA 75 MCG TABLET (FP) PO SCH (06:16)
--- NOTE | 2018-02-23 07:40 | PN ---
Progress Note (short form) - Note Progress Note: POD #3 Patient seen and examined at the bedside. No acute events over past 24 hours. Still has some residual paresthesias in her upper extremities BUT improved s/p surgery. Tolerating PO diet. Denies n/v/f/c, CP, SOB Last Vital Signs Temp Pulse Resp BP Pulse Ox 100.6 F H 111 H 18 137/88 97 // 22:00 02/22/18 22:00 02/22/18 22:00 02/22/18 22:00 02/22/18 21:00 CBC, BMP 02/21/18 07:09 02/21/18 07:09 PE: Gen: A&Ox3, NAD PULM: unlabored resp on RA NECK: posterior incision c/d/i with bipin, no evidence of d/c erythema, edema or collection. NEURO: GMNVI. 5/5 bilingual sales assistant strength b/l UE LE: soft, supple, NT. Problem List - Problems (1) Cervical spondylosis with radiculopathy Assessment/Plan: POD #3 s/p exploration of hardware, C3-T1 laminectomies, C7-T1 osteotomies, deformity correction, C3-C7 posterior fusion. Dressing changed on rounds. Patient is cleared for dc to rehab today Follow-up with Dr. Rossi 03/11 for staple removal Code(s): M47.22 - OTHER SPONDYLOSIS WITH RADICULOPATHY, CERVICAL REGION
[2018-02-23] MEDS: HEPARIN NA (PORCINE) 5,000 UNITS/ML 1ML VIAL SQ SCH ×2 (08:55→17:04)
[2018-02-23] MEDS ORDERED: ceFAZolin SODIUM 1 GM VIAL ONE ×3 (09:38→22:03)
[2018-02-23] MEDS ORDERED: DEXTROSE 5%-WATER - 50 ML IVPB ONE ×3 (09:38→22:03)
[2018-02-23] MEDS: FOLIC ACID 1 MG TABLET (FP) PO SCH (09:41)
[2018-02-23] MEDS: FERROUS SO4 325 MG TABLET (FP) PO SCH (09:41)
--- NOTE | 2018-02-23 10:27 | PN ---
Physical Exam: Medicine coverage for Dr. Hernandez SUBJECTIVE: Patient seen and examined. Complains of pain and very painful tender shoulders OBJECTIVE: Vital Signs Period Temp Pulse Resp BP Sys/Ororuke Pulse Ox Last 24 Hr 98.2 F-100.8 F 77-114 16-18 131-169/80-98 97 PE Neuro: alert, awake, cn 2-12intact, cervical hard collar in place Pulm: CTAB CV: s1 s2 rrr Abd: s nt nd +bs Ext: warm, no le edema MSK: tenderness to light palpation b/l Active Medications Generic Name Dose Route Start Last Admin Trade Name Freq PRN Reason Stop Dose Admin Acetaminophen 650 mg 02/22/18 21:48 02/23/18 05:55 Tylenol - PO 650 mg Q6H PRN Administration FEVER Atorvastatin Calcium 40 mg 02/20/18 22:00 02/22/18 21:34 Lipitor - PO 40 mg HS JODIE Administration Dexamethasone Sodium Phosphate 4 mg 02/20/18 11:02 Decadron Injection - IVPUSH ONCE PRN NAUSEA AND/OR VOMITING Diphenhydramine HCl 25 mg 02/20/18 11:19 Benadryl - PO Q6H PRN FOR ITCHING Docusate Sodium 100 mg 02/20/18 14:00 02/23/18 05:52 Colace - PO 100 mg TID JODIE Administration Ferrous Sulfate 325 mg 02/21/18 10:00 02/23/18 09:41 Feosol - PO 325 mg DAILY JODIE Administration Folic Acid 1 mg 02/21/18 10:00 02/23/18 09:41 Folic Acid - PO 1 mg DAILY JODIE Administration Heparin Sodium (Porcine) 5,000 unit 02/21/18 08:00 02/23/18 08:55 Heparin - SQ 5,000 unit Q8H JODIE Administration Cefazolin Sodium 1 gm/ 50 mls @ 100 mls/hr 02/20/18 15:15 02/23/18 09:41 Dextrose IVPB 100 mls/hr Q8H-IV JODIE Administration Levothyroxine Sodium 75 mcg 02/21/18 07:00 02/23/18 06:16 Synthroid - PO 75 mcg DAILY@0700 JODIE Administration Ondansetron HCl 4 mg 02/20/18 11:02 Zofran Injection IVPUSH Q4H PRN NAUSEA AND/OR VOMITING Ondansetron HCl 4 mg 02/20/18 11:19 Zofran Injection IVPUSH Q6H PRN NAUSEA Oxycodone HCl 5 mg 02/22/18 13:18 Roxicodone - PO Q4H PRN PAIN LEVEL 1-5 Oxycodone HCl 10 mg 02/22/18 13:19 02/23/18 09:41 Roxicodone - PO 10 mg Q4H PRN Administration PAIN LEVEL 6-10 Pregabalin 100 mg 02/20/18 22:45 02/22/18 21:34 Lyrica - PO 100 mg HS JODIE Administration Promethazine HCl 12.5 mg 02/20/18 11:02 Phenergan Injection - IVPB Q6H PRN NAUSEA AND/OR VOMITING Zolpidem Tartrate 10 mg 02/20/18 22:00 02/22/18 22:47 Ambien - PO 10 mg HS PRN Administration INSOMNIA Assessment: 72 year old female s/p exploration of hardware, C3-T1 laminectomies , C7-T1 osteotomies, deformity correction, C3-C7 posterior fusion Plan: 1. s/p cervical surgery - Continue post op care - Pain mgmt - PT daily - For SNF 2. Low grade fever/leukocytosis - Likely atelectasis - Will repeat cbc now - Received post op abx 3. Hypothyroid - Continue synthroid - TSH wnl 4. DVT - Heparin sq Visit type - Emergency Visit Emergency Visit: Yes ED Registration Date: 02/20/18 Care time: The patient presented to the Emergency Department on the above date and was hospitalized for further evaluation of their emergent condition. - New Patient This patient is new to me today: Yes Date on this admission: 02/23/18 - Critical Care Critical Care patient: No
[2018-02-23 11:23] LABS: BASO % 0.6 % (0-2.0); EOS % 0.9 % (0-4.5); HEMATOCRIT 32.9 % (32.4-45.2); HEMOGLOBIN 10.8 GM/dL (10.7-15.3); LYMPH % 18.5 % (8-40); MCH 27.9 pg (25.7-33.7); MCHC 32.8 g/dl (32.0-36.0); MEAN CELL VOLUME 85.1 fl (80-96); MONO % 11.3 % (3.8-10.2); NEUT % 68.7 % (42.8-82.8); PLATELET COUNT 297 K/MM3 (134-434); RBC 3.87 M/mm3 (3.60-5.2); RDW 14.6 % (11.6-15.6); WHITE BLOOD COUNT 13.6 K/mm3 (4.0-10.0)
[2018-02-23] MEDS ORDERED: PT OWN MED DRAWER 7, Y5N ONE (14:36)
[2018-02-23] MEDS: PREGABALIN 50 MG CAPSULE PO SCH (22:06)
[2018-02-23] MEDS: ATORVASTATIN CA 40 MG TABLET (FP) PO SCH (22:06)
[2018-02-24] MEDS: HEPARIN NA (PORCINE) 5,000 UNITS/ML 1ML VIAL SQ SCH ×4 (00:29→20:29)
[2018-02-24] MEDS: CEFAZOLIN 1 GM in DEXTROSE 5%-WATER - 50 ML IVPB SCH ×3 (01:10→17:23)
[2018-02-24] MEDS: DOCUSATE SODIUM 100 MG CAPSULE (FP) PO SCH ×4 (05:45→21:10)
[2018-02-24] MEDS: oxyCODONE HCL 5 MG TABLET PO PRN ×3 (05:48→23:24)
[2018-02-24] MEDS: LEVOTHYROXINE NA 75 MCG TABLET (FP) PO SCH (06:09)
[2018-02-24 09:52] LABS: HEMATOCRIT 33.4 % (32.4-45.2); HEMOGLOBIN 11.2 GM/dL (10.7-15.3); MCH 28.2 pg (25.7-33.7); MCHC 33.4 g/dl (32.0-36.0); MEAN CELL VOLUME 84.4 fl (80-96); PLATELET COUNT 363 K/MM3 (134-434); RBC 3.96 M/mm3 (3.60-5.2); RDW 14.7 % (11.6-15.6); WHITE BLOOD COUNT 14.4 K/mm3 (4.0-10.0)
[2018-02-24] MEDS ORDERED: ceFAZolin SODIUM 1 GM VIAL ONE ×2 (09:54→17:18)
[2018-02-24] MEDS ORDERED: DEXTROSE 5%-WATER - 50 ML IVPB ONE ×2 (09:54→17:18)
[2018-02-24] MEDS: FOLIC ACID 1 MG TABLET (FP) PO SCH (09:58)
[2018-02-24] MEDS: FERROUS SO4 325 MG TABLET (FP) PO SCH (09:58)
[2018-02-24 10:10] LABS: ANION GAP 9 (8-16); BLOOD UREA NITROGEN 12 mg/dL (7-18); CALCIUM 8.9 mg/dL (8.5-10.1); CHLORIDE 94 mmol/L (98-107); CO2 28 mmol/L (21-32); CREATININE 0.9 mg/dL (0.55-1.02); GLUCOSE,RANDOM 175 mg/dL (74-106); POTASSIUM 3.9 mmol/L (3.5-5.1); SODIUM 131 mmol/L (136-145)
[2018-02-24] MEDS ORDERED: diazePAM 2 MG TABLET PO ONE (11:03)
[2018-02-24] MEDS ORDERED: IBUPROFEN 400 MG TABLET (FP) PO ONE (11:04)
[2018-02-24] MEDS ORDERED: MAGNESIUM HYDROX 2400MG/30ML ORAL SUSPENSION 30 ML CUP PO PRN (11:06)
--- NOTE | 2018-02-24 11:09 | PN ---
Physical Exam: SUBJECTIVE: Patient seen and examined. She appears uncomfortable, very sore and tender to touch on all body parts low grade fever overnight OBJECTIVE: Vital Signs Period Temp Pulse Resp BP Sys/Orourke Pulse Ox Last 24 Hr 98.2 F-100.4 F 77-116 18-20 125-143/70-75 97 PE Neuro: alert, awake, cn 2-12intact, cervical hard collar in place Pulm: CTAB CV: s1 s2 rrr Abd: s nt nd +bs Ext: warm, no le edema MSK: tenderness to light palpation b/l upper and lower ext Laboratory Results - last 24 hr 02/23/18 02/24/18 02/24/18 10:00 09:40 09:40 WBC 13.6 H 14.4 H RBC 3.87 3.96 Hgb 10.8 11.2 Hct 32.9 33.4 MCV 85.1 84.4 MCH 27.9 28.2 MCHC 32.8 33.4 RDW 14.6 14.7 Plt Count 297 363 D MPV 9.0 9.0 Absolute Neuts (auto) 9.3 Neutrophils % 68.7 Lymphocytes % 18.5 D Monocytes % 11.3 H Eosinophils % 0.9 Basophils % 0.6 Nucleated RBC % 0 Sodium 131 L Potassium 3.9 Chloride 94 L Carbon Dioxide 28 Anion Gap 9 BUN 12 Creatinine 0.9 Creat Clearance w eGFR > 60 Random Glucose 175 H Calcium 8.9 Active Medications Generic Name Dose Route Start Last Admin Trade Name Freq PRN Reason Stop Dose Admin Acetaminophen 650 mg 02/22/18 21:48 02/23/18 05:55 Tylenol - PO 650 mg Q6H PRN Administration FEVER Atorvastatin Calcium 40 mg 02/20/18 22:00 02/23/18 22:06 Lipitor - PO 40 mg HS JODIE Administration Dexamethasone Sodium Phosphate 4 mg 02/20/18 11:02 Decadron Injection - IVPUSH ONCE PRN NAUSEA AND/OR VOMITING Diphenhydramine HCl 25 mg 02/20/18 11:19 Benadryl - PO Q6H PRN FOR ITCHING Docusate Sodium 100 mg 02/20/18 14:00 02/24/18 05:45 Colace - PO 100 mg TID JODIE Administration Ferrous Sulfate 325 mg 02/21/18 10:00 06/16/18 09:58 Feosol - PO 325 mg DAILY JODIE Administration Folic Acid 1 mg 02/21/18 10:00 02/24/18 09:58 Folic Acid - PO 1 mg DAILY JODIE Administration Heparin Sodium (Porcine) 5,000 unit 02/21/18 08:00 02/24/18 08:56 Heparin - SQ 5,000 unit Q8H JODIE Administration Cefazolin Sodium 1 gm/ 50 mls @ 100 mls/hr 02/20/18 15:15 02/24/18 09:58 Dextrose IVPB 100 mls/hr Q8H-IV JODIE Administration Levothyroxine Sodium 75 mcg 02/21/18 07:00 02/24/18 06:09 Synthroid - PO 75 mcg DAILY@0700 JODIE Administration Ondansetron HCl 4 mg 02/20/18 11:02 Zofran Injection IVPUSH Q4H PRN NAUSEA AND/OR VOMITING Ondansetron HCl 4 mg 02/20/18 11:19 Zofran Injection IVPUSH Q6H PRN NAUSEA Oxycodone HCl 5 mg 02/22/18 13:18 Roxicodone - PO Q4H PRN PAIN LEVEL 1-5 Oxycodone HCl 10 mg 02/22/18 13:19 02/24/18 09:58 Roxicodone - PO 10 mg Q4H PRN Administration PAIN LEVEL 6-10 Pregabalin 100 mg 02/20/18 22:45 02/23/18 22:06 Lyrica - PO 100 mg HS JOIDE Administration Promethazine HCl 12.5 mg 02/20/18 11:02 Phenergan Injection - IVPB Q6H PRN NAUSEA AND/OR VOMITING Assessment: 72 year old female s/p exploration of hardware, C3-T1 laminectomies , C7-T1 osteotomies, deformity correction, C3-C7 posterior fusion Plan: 1. s/p cervical surgery - Trial valium 2mg w/ ibuprofen 400mg x1 - Consider flexeril - PT daily - For SNF 2. Low grade fever/leukocytosis - CXR no acute pathology - Follow [facility] 3. Hypothyroid - Continue synthroid - TSH wnl 4. DVT - Heparin sq Visit type - Emergency Visit Emergency Visit: Yes ED Registration Date: 02/20/18 Care time: The patient presented to the Emergency Department on the above date and was hospitalized for further evaluation of their emergent condition. - New Patient This patient is new to me today: No - Critical Care Critical Care patient: No
[2018-02-24 11:31] LABS: URINE APPEARANCE CLEAR; URINE BILIRUBIN NEGATIVE (<2.0 mg/dL); URINE COLOR AMBER; URINE GLUCOSE (UA) NEGATIVE (NEGATIVE); URINE KETONE NEGATIVE (NEGATIVE); URINE LEUK ESTERASE NEGATIVE (NEGATIVE); URINE NITRITE NEGATIVE (NEGATIVE); URINE PROTEIN 2+ (NEGATIVE); URINE UROBILINOGEN NEGATIVE mg/dL (0.2-1.0)
[2018-02-24 11:46] LABS: EPI CELLS RARE /HPF (FEW); URINE MUCUS RARE
[2018-02-24] MEDS: POLYETHYLENE GLYCOL 3350 119 GM BTL PO SCH (11:50)
[2018-02-24] MEDS ORDERED: diazePAM 2 MG TABLET PO PRN (17:07)
[2018-02-24] MEDS: ATORVASTATIN CA 40 MG TABLET (FP) PO SCH ×2 (20:29→21:10)
[2018-02-24] MEDS: PREGABALIN 50 MG CAPSULE PO SCH ×2 (20:29→21:11)
[2018-02-24] MEDS: IBUPROFEN 400 MG TABLET (FP) PO PRN (20:38)
[2018-02-24] MEDS ORDERED: PT OWN MED DRAWER 7, Y5N ONE (21:35)
[2018-02-24] MEDS: ACETAMINOPHEN 325 MG TABLET (FP) PO PRN (23:26)
[2018-02-25] MEDS: HEPARIN NA (PORCINE) 5,000 UNITS/ML 1ML VIAL SQ SCH ×3 (00:10→16:33)
[2018-02-25] MEDS ORDERED: DEXTROSE 5%-WATER - 50 ML IVPB ONE ×2 (01:04→09:37)
[2018-02-25] MEDS ORDERED: ceFAZolin SODIUM 1 GM VIAL ONE ×2 (01:04→09:37)
[2018-02-25] MEDS: CEFAZOLIN 1 GM in DEXTROSE 5%-WATER - 50 ML IVPB SCH ×3 (01:09→17:02)
[2018-02-25] MEDS: oxyCODONE HCL 5 MG TABLET PO PRN (06:21)
[2018-02-25] MEDS: LEVOTHYROXINE NA 75 MCG TABLET (FP) PO SCH (06:21)
[2018-02-25] MEDS: DOCUSATE SODIUM 100 MG CAPSULE (FP) PO SCH ×2 (06:21→13:52)
[2018-02-25] MEDS: ACETAMINOPHEN 325 MG TABLET (FP) PO PRN (06:22)
[2018-02-25] MEDS ORDERED: PT OWN MED DRAWER 7, Y5N ONE (06:34)
[2018-02-25] MEDS: FERROUS SO4 325 MG TABLET (FP) PO SCH (09:39)
[2018-02-25] MEDS: FOLIC ACID 1 MG TABLET (FP) PO SCH (09:40)
[2018-02-25] MEDS: POLYETHYLENE GLYCOL 3350 119 GM BTL PO SCH (09:40)
[2018-02-25] MEDS: IBUPROFEN 400 MG TABLET (FP) PO PRN (10:23)
--- NOTE | 2018-02-25 11:26 | PN ---
Progress Note (short form) - Note Progress Note: Patient ambulating in [place] with cane. Incisional pain abating. Patient with expected intrascapular pain. Patient is ready for discharge from Neurosurgery standpoint. All questions answered.
--- NOTE | 2018-02-25 11:53 | DS ---
Physical Exam: SUBJECTIVE: Patient seen and examined. She has pain, however appears more tolerable. Afebrile OBJECTIVE: Vital Signs Period Temp Pulse Resp BP Sys/Orourke Pulse Ox Last 24 Hr 97.5 F-98.6 F 78-94 18-20 115-139/64-86 96 PE Neuro: alert, awake, cn 2-12intact, cervical hard collar in place Pulm: CTAB CV: s1 s2 rrr Abd: s nt nd +bs Ext: warm, no le edema MSK: tenderness to light palpation b/l upper and lower ext HOSPITAL COURSE: Date of Admission:02/20/18 Date of Discharge: 02/25/18 Minutes to complete discharge: 37 Discharge Summary Reason For Visit: CERVICAL STENOSIS AND INSTABILITY WITH KYPHOSIS Current Active Problems Cervical spondylosis with radiculopathy (Acute) Hospital Course: Hospital Course: Assessment: 72 year old female s/p exploration of hardware, C3-T1 laminectomies , C7-T1 osteotomies, deformity correction, C3-C7 posterior fusion Plan: 1. s/p cervical surgery - Pain mgmt, lyrica - PT daily - For SNF 2. Low grade fever/leukocytosis - No infectious signs, leukocytosis likely reactive - No fever x24hr - Stable for DC 3. Hypothyroid - Continue synthroid - TSH wnl Dispo: - SNF Condition: Stable - Instructions Diet, Activity, Other Instructions: Post Operative Instructions Physical Activity Resume your normal everyday activity as tolerated. No heavy lifting or exercise until seen by your surgeon. You may walk unlimited amounts and climb stairs. You may resume driving the car when you feel safe and comfortable behind the wheel and you are no longer wearing your brace. Do not operate a vehicle while taking narcotic medication. Brace If you had back surgery, wear TLSO Brace whenever out of bed. May remove to sleep and shower. If you had neck surgery, wear surgical collar 23 hr/day. Remove to shower only. Wound Care Keep your incision clean, dry and covered at all times. Apply an occlusive dressing (Saran wrap or Tegaderm) when showering to avoid getting your incision wet. Do not submerge incision or apply ointments or creams. The bipin will be removed in the office in 10-14 days post-op. Diet There are no dietary restrictions. Eat healthy, high-fiber foods. Drink 6-8 glasses of liquid each day. This will assist in keeping your bowels regular. Pain Management You may take Tylenol or acetaminophen. Any pain prescription medication ordered should be taken as prescribed for moderate to severe pain. Call Dr Lees for any of the following: Severe pain not relieved by medication Fever of 101 or higher Excessive bleeding or drainage on dressing Inability to urinate Any chest pain or shortness of breath, seek Emergency Care. Call the office to confirm a post-operative appointment 7-10 days post-op Karsten Rossi MD [facility] [address] [place] [address] Referrals: Karsten Rossi MD, [facility] [Staff Physician] - Disposition: [facility] - Home Medications Comprehensive Discharge Medication List: Ambulatory Orders Zolpidem Tartrate [Ambien] 10 mg PO HS 10/13/17 Acetaminophen [Tylenol .Regular Strength -] 650 mg PO Q4H PRN tablet 11/01/17 Atorvastatin Ca [Lipitor] 40 mg PO HS tablet 11/01/17 Docusate Sodium [Colace -] 100 mg PO TID capsule 11/01/17 Levothyroxine [Synthroid -] 75 mcg PO DAILY@0700 tablet 11/01/17 oxyCODONE HCL [Roxicodone -] 10 mg PO Q6H PRN 7 Days #30 tablet MDD 40mg Ferrous Sulfate 325 mg PO DAILY 02/07/18 Pregabalin [Lyrica] 100 mg PO HS 02/07/18 This patient is new to me today: No Emergency Visit: Yes ED Registration Date: 02/20/18 Care time: The patient presented to the Emergency Department on the above date and was hospitalized for further evaluation of their emergent condition. Critical Care patient: No - Discharge Referral Referred to [facility] No
[2018-02-25] MEDS ORDERED: BISACODYL 5 MG TABLET.DR (FP) PO ONE (12:06)
[2018-02-25] MEDS: MAGNESIUM HYDROX 2400MG/30ML ORAL SUSPENSION 30 ML CUP PO ONE ×2 (12:23→12:26)
[2018-02-25] MEDS ORDERED: oxyCODONE HCL 5 MG TABLET PO ONE (14:52)
[2018-02-25 15:07] VITALS: BP 128/74; PULSE 83; TEMP 98.2
== END 2018-02-25 17:24 | DRG 472 ==
LOC: JSAMEDAYSX 05:10 → UNDOADMIN 05:10 → EDSTATUS 14:30 → JSAMEDAYSX 02-20 05:05 → J8W 02-20 13:44
PROVIDERS: ADMIT Family Medicine; ATTEND Nurse Practitioner Acute Care
PROC: 0PW304Z Revision of Internal Fixation Device in Cervical Vertebra, Open Approach (ICD-10-PCS; 2018-02-20)
PROC: 0JX70ZZ Transfer Back Subcutaneous Tissue and Fascia, Open Approach (ICD-10-PCS; 2018-02-20)
PROC: 0RG40AJ Fusion of Cervicothoracic Vertebral Joint with Interbody Fusion Device, Posterior Approach, Anterior Column, Open Approach (ICD-10-PCS; principal; 2018-02-20 08:00)
DX: M40.292 Other kyphosis, cervical region (principal); M47.12 Other spondylosis with myelopathy, cervical region; E03.9 Hypothyroidism, unspecified; E78.5 Hyperlipidemia, unspecified; G89.29 Other chronic pain; M47.22 Other spondylosis with radiculopathy, cervical region; R50.9 Fever, unspecified; D72.829 Elevated white blood cell count, unspecified
CPT/HCPCS: 36415; 71045-TC-FY; 72125-TC; 76000-TC-FY; 80048; 81003; 81015; 85025; 85027; 86850; 86900; 86901; 94760; 97116-GP; 97162-GP; J0131; J1644

== ENCOUNTER 2019-12-20 17:32 | Inpatient (IN) | payer OTHER ==
[2019-12-20 18:37] VITALS: BMI 28.3
[2019-12-20] MEDS ORDERED: CEFTRIAXONE 1,000 MG in DEXTROSE 5%-WATER - 50 ML IVPB ONE (18:49)
[2019-12-20] MEDS ORDERED: AZITHROMYCIN IVPB 500 MG in DEXTROSE 5%-WATER - 250 ML IVPB ONE (18:50)
[2019-12-20] MEDS ORDERED: CEFTRIAXONE 1 GM/50 ML BAG ONE (19:17)
[2019-12-20] MEDS ORDERED: AZITHROMYCIN IVPB 500 MG/250 ML BAG IVPB ONE (19:17)
[2019-12-20 20:10] LABS: EOS % 4.2 % (0-4.5); HEMATOCRIT 28.4 % (32.4-45.2); HEMOGLOBIN 9.5 GM/dL (10.7-15.3); LYMPH % 19.4 % (8-40); MCH 28.8 pg (25.7-33.7); MCHC 33.3 g/dl (32.0-36.0); MEAN CELL VOLUME 86.4 fl (80-96); MEAN PLT VOLUME 8.9 fl (7.5-11.1); MONO % 8.4 % (3.8-10.2); PLATELET COUNT 358 K/MM3 (134-434); RBC 3.29 M/mm3 (3.60-5.2); RDW 14.7 % (11.6-15.6); WHITE BLOOD COUNT 11.5 K/mm3 (4.0-10.0)
[2019-12-20] MEDS ORDERED: HYDROXYCHLOROQUINE SO4 200 MG TABLET (FP) PO STA (20:15)
[2019-12-20 20:26] LABS: INR 1.03 (0.83-1.09); PROTHROMBIN TIME (PATIENT) 12.2 SEC (9.7-13.0)
[2019-12-20 20:29] LABS: ACTIVATED PTT 18.8 SECONDS (25.2-36.5)
[2019-12-20] MEDS ORDERED: HYDROXYCHLOROQUINE SO4 200 MG TABLET (FP) PO ONE (20:49)
[2019-12-20 21:24] LABS: ALBUMIN 3.1 g/dl (3.4-5.0); ALK PHOS 118 U/L (45-117); ANION GAP 8 MMOL/L (8-16); BILIRUBIN,TOTAL 0.5 mg/dL (0.2-1); BLOOD UREA NITROGEN 8.6 mg/dL (7-18); CALCIUM 8.8 mg/dL (8.5-10.1); CHLORIDE 108 mmol/L (98-107); CO2 25 mmol/L (21-32); CREATININE 0.8 mg/dL (0.55-1.3); GLUCOSE,RANDOM 123 mg/dL (74-106); POTASSIUM 4.8 mmol/L (3.5-5.1); SGOT/AST 23 U/L (15-37); SGPT/ALT 18 U/L (13-61); SODIUM 141 mmol/L (136-145); TOT PROT 7.4 g/dl (6.4-8.2)
[2019-12-20 21:44] LABS: LDH 313 U/L (84-246)
[2019-12-21] MEDS ORDERED: ZOLPIDEM TARTRATE 5 MG TABLET PO ONE ×2 (01:29→02:00)
[2019-12-21] MEDS: LEVOTHYROXINE NA 75 MCG TABLET (FP) PO SCH (06:19)
[2019-12-21] MEDS ORDERED: HYDROXYCHLOROQUINE SO4 200 MG TABLET (FP) PO ONE (08:00)
[2019-12-21] MEDS ORDERED: cefTRIAXone SODIUM 1 GM VIAL ONE ×2 (09:17→09:18)
[2019-12-21] MEDS ORDERED: DEXTROSE 5%-WATER - 50 ML IVPB ONE (09:18)
[2019-12-21] MEDS: ENOXAPARIN NA (PORCINE) 40 MG/0.4 ML DISP.SYRIN SQ SCH (09:25)
[2019-12-21] MEDS: ZINC SULFATE 220 MG CAPSULE (FP) PO SCH ×2 (09:25→21:42)
[2019-12-21] MEDS: CEFTRIAXONE 1 GM in DEXTROSE 5%-WATER - 50 ML IVPB SCH (09:25)
[2019-12-21] MEDS: AZITHROMYCIN IVPB 500 MG/250 ML BAG IVPB SCH (09:26)
[2019-12-21 11:04] LABS: BASO % 0.9 % (0-2.0); EOS % 6.2 % (0-4.5); HEMATOCRIT 28.5 % (32.4-45.2); HEMOGLOBIN 9.3 GM/dL (10.7-15.3); MCH 28.5 pg (25.7-33.7); MCHC 32.7 g/dl (32.0-36.0); MEAN CELL VOLUME 87.1 fl (80-96); MEAN PLT VOLUME 8.5 fl (7.5-11.1); MONO % 9.5 % (3.8-10.2); NEUT % 55.4 % (42.8-82.8); PLATELET COUNT 362 K/MM3 (134-434); RBC 3.27 M/mm3 (3.60-5.2); RDW 14.9 % (11.6-15.6); RETICULOCYTES 2.49 % (0.5-1.5); WHITE BLOOD COUNT 7.6 K/mm3 (4.0-10.0)
[2019-12-21 12:17] LABS: BILIRUBIN,TOTAL 0.6 mg/dL (0.2-1); BLOOD UREA NITROGEN 8.3 mg/dL (7-18); CALCIUM 8.8 mg/dL (8.5-10.1); CREATININE 0.9 mg/dL (0.55-1.3); POTASSIUM 4.1 mmol/L (3.5-5.1); TOT PROT 7.3 g/dl (6.4-8.2)
[2019-12-21] MEDS: ASCORBIC ACID 500 MG TABLET (FP) PO SCH ×2 (14:30→21:42)
[2019-12-21] MEDS: HYDROXYCHLOROQUINE SO4 200 MG TABLET (FP) PO SCH (21:43)
[2019-12-21] MEDS: ACETAMINOPHEN 325 MG TABLET (FP) PO PRN (21:54)
[2019-12-21] MEDS: guaiFENesin 200 MG/10 ML 10 ML UNIT-DOSE CUPS PO PRN (21:54)
[2019-12-21] MEDS ORDERED: ATORVASTATIN CA 40 MG TABLET (FP) PO SCH (22:00)
[2019-12-22] MEDS ORDERED: BENZOCAINE/MENTH/CETYLPYRD CL 1 EACH LOZENGE MM PRN (00:34)
[2019-12-22] MEDS: ACETAMINOPHEN 325 MG TABLET (FP) PO PRN (06:27)
[2019-12-22] MEDS: guaiFENesin 200 MG/10 ML 10 ML UNIT-DOSE CUPS PO PRN (06:27)
[2019-12-22] MEDS: LEVOTHYROXINE NA 75 MCG TABLET (FP) PO SCH (06:27)
[2019-12-22] MEDS ORDERED: PT OWN MED DRAWER 7, Y5N ONE (09:29)
[2019-12-22] MEDS ORDERED: cefTRIAXone SODIUM 1 GM VIAL ONE (09:29)
[2019-12-22] MEDS ORDERED: DEXTROSE 5%-WATER - 50 ML IVPB ONE (09:29)
[2019-12-22] MEDS: HYDROXYCHLOROQUINE SO4 200 MG TABLET (FP) PO SCH (09:36)
[2019-12-22] MEDS: ZINC SULFATE 220 MG CAPSULE (FP) PO SCH (09:36)
[2019-12-22] MEDS: ASCORBIC ACID 500 MG TABLET (FP) PO SCH (09:37)
[2019-12-22] MEDS: CEFTRIAXONE 1 GM in DEXTROSE 5%-WATER - 50 ML IVPB SCH (09:39)
[2019-12-22] MEDS: ENOXAPARIN NA (PORCINE) 40 MG/0.4 ML DISP.SYRIN SQ SCH (09:40)
[2019-12-22 09:49] LABS: CALCIUM 8.6 mg/dL (8.5-10.1); CREATININE 0.8 mg/dL (0.55-1.3); POTASSIUM 3.9 mmol/L (3.5-5.1)
[2019-12-22] MEDS ORDERED: CHOLECALCIFEROL (VIT D3) 1,000 UNIT (25 MCG) TABLET PO SCH (10:00)
[2019-12-22] MEDS: AZITHROMYCIN IVPB 500 MG/250 ML BAG IVPB SCH (10:15)
[2019-12-22 11:51] VITALS: BP 132/55; PULSE 75; TEMP 98.1
== END 2019-12-22 13:57 | disposition home or self-care (01) | DRG 177 ==
LOC: JER 17:32 → JERBED 21:49 → J8W 12-21 00:01
PROVIDERS: ADMIT Internal Medicine; ATTEND Internal Medicine
DX: U07.1 COVID-19 (principal); J12.89 Other viral pneumonia; J96.01 Acute respiratory failure with hypoxia; E46 Unspecified protein-calorie malnutrition; I10 Essential (primary) hypertension; E78.5 Hyperlipidemia, unspecified; E03.9 Hypothyroidism, unspecified; M54.9 Dorsalgia, unspecified; D64.9 Anemia, unspecified; E88.09 Other disorders of plasma-protein metabolism, not elsewhere classified; Z68.28 Body mass index [BMI] 28.0-28.9, adult; R00.0 Tachycardia, unspecified
CPT/HCPCS: 36415; 71045-TC-FY; 80048; 80053; 82550; 82553; 82607; 82728; 82746; 83540; 83550; 83605; 83615; 83735; 84100; 84466; 84484; 85025; 85044; 85379; 85610; 85730; 86140; 93005; 93010; 94761; 99285-25; U0002